=== PATIENT | male | born 1965 | race Caucasian/White ===

== ENCOUNTER → 2016-07-30 | Outpatient (CLI) | payer OTHER ==
[~2016-07-30] MED LIST: ALT5 PO; SIMV20TA2 PO
[2016-07-30 09:57] LABS: ESTIMATED AVERAGE GLUCOSE 163 mg/dl; HA1C FLAG Normal (Normal)
== END | disposition home or self-care (01) ==
LOC: C.LAB1850 07:37
PROVIDERS: ATTEND Internal Medicine
DX: E11.9 Type 2 diabetes mellitus without complications (principal)

== ENCOUNTER → 2016-10-30 | Outpatient (CLI) | payer OTHER ==
[2016-10-30 12:13] LABS: BASO % 0.4 %; BASO ABS # 0.03 K/uL (0-0.2); COMPLETE YES; EOS % 2.7 %; IG% 0.1 %; LYMPH % 33.3 %; LYMPH ABS # 2.67 K/uL (1.2-3.4); MEAN CELL VOLUME 87.5 fL (80-100); MEAN CORPUSCULAR HEMOGLOBIN 30.2 pg (25-34); MEAN CORPUSCULAR HGB CONC 34.5 g/dl (32-36); MEAN PLATELET VOLUME 10.5 fL (7.4-10.4); MONO % 5.7 %; NEUT % 57.8 %; PLATELET COUNT 205 K/uL (130-400); RED BLOOD COUNT 5.03 M/uL (4.7-6.1); WHITE BLOOD COUNT 8.03 K/uL (4.8-10.8)
[2016-10-30 12:25] LABS: ALT/SGPT 77 U/L (12-78); AST/SGOT 33 U/L (15-37); BLOOD UREA NITROGEN 22 mg/dl (7-18); BUN/CREATININE RATIO 18.1 (10-20); CALCIUM 9.4 mg/dl (8.5-10.1); CARBON DIOXIDE 24 mmol/L (21-32); CHLORIDE 106 mmol/L (98-107); CHOLESTEROL 143 mg/dl (0-200); GLUCOSE 120 mg/dl (70-99); POTASSIUM 4.4 mmol/L (3.5-5.1); SODIUM 138 mmol/L (136-145); TRIGLYCERIDES 205 mg/dl (0-150); VERY LOW DENSITY LIPOPROT CALC 41 mg/dl
[2016-10-30 12:28] LABS: CHOLESTEROL/HDL RATIO 3.6; HDL CHOLESTEROL 40 mg/dl; LDL CHOLESTEROL CALCULATED 62 mg/dl
[2016-10-30 12:45] LABS: ESTIMATED AVERAGE GLUCOSE 160 mg/dl; HA1C FLAG Normal (Normal)
== END | disposition home or self-care (01) ==
LOC: C.LAB1850 10:55
PROVIDERS: ATTEND Physician Assistant
DX: E78.5 Hyperlipidemia, unspecified (principal); D69.0 Allergic purpura; E11.9 Type 2 diabetes mellitus without complications

== ENCOUNTER → 2017-02-01 | Outpatient (CLI) | payer OTHER ==
[2017-02-02 05:44] LABS: ESTIMATED AVERAGE GLUCOSE 151 mg/dl; HA1C FLAG Normal (Normal)
== END | disposition home or self-care (01) ==
LOC: C.LAB1850 15:24
PROVIDERS: ATTEND Internal Medicine
DX: E11.9 Type 2 diabetes mellitus without complications (principal)

== ENCOUNTER → 2017-04-26 | Outpatient (CLI) | payer OTHER ==
[2017-04-26 09:38] LABS: BASO % 0.4 %; BASO ABS # 0.03 K/uL (0-0.2); COMPLETE YES; EOS % 2.8 %; HEMATOCRIT 43.1 % (42-52); IG% 0.1 %; LYMPH % 32.6 %; LYMPH ABS # 2.72 K/uL (1.2-3.4); MEAN CELL VOLUME 87.2 fL (80-100); MEAN CORPUSCULAR HEMOGLOBIN 30.6 pg (25-34); MEAN PLATELET VOLUME 10.1 fL (7.4-10.4); MONO % 6.6 %; NEUT % 57.5 %; PLATELET COUNT 234 K/uL (130-400); RED BLOOD COUNT 4.94 M/uL (4.7-6.1); WHITE BLOOD COUNT 8.34 K/uL (4.8-10.8)
[2017-04-26 09:52] LABS: ALT/SGPT 70 U/L (12-78); AST/SGOT 28 U/L (15-37); BLOOD UREA NITROGEN 17 mg/dl (7-18); BUN/CREATININE RATIO 16.7 (10-20); CALCIUM 9.1 mg/dl (8.5-10.1); CARBON DIOXIDE 27 mmol/L (21-32); CHLORIDE 106 mmol/L (98-107); CREATININE 1.02 mg/dl (0.60-1.40); GLUCOSE 132 mg/dl (70-99); POTASSIUM 4.4 mmol/L (3.5-5.1); SODIUM 136 mmol/L (136-145)
[2017-04-26 09:53] LABS: ESTIMATED AVERAGE GLUCOSE 166 mg/dl; HA1C FLAG Normal (Normal)
[2017-04-26 10:00] LABS: CHOLESTEROL 147 mg/dl (0-200); CHOLESTEROL/HDL RATIO 4.1; HDL CHOLESTEROL 36 mg/dl; LDL CHOLESTEROL CALCULATED 51 mg/dl; TRIGLYCERIDES 299 mg/dl (0-150); VERY LOW DENSITY LIPOPROT CALC 60 mg/dl
== END | disposition home or self-care (01) ==
LOC: C.LAB1850 07:40
PROVIDERS: ATTEND Physician Assistant
DX: E78.5 Hyperlipidemia, unspecified (principal); E11.9 Type 2 diabetes mellitus without complications

== ENCOUNTER → 2017-04-28 | Outpatient (CLI) | payer OTHER ==
--- NOTE | 2017-04-28 09:09 | DIAGNOSTIC IMAGING REPORT ---
CHEST 2 VIEWS ROUTINE HISTORY: Cough. COMPARISON: Chest 10/20/2012. FINDINGS: The lungs are clear. Cardiac silhouette is normal in size. No pleural effusions. No pneumothorax. IMPRESSION: No acute process. Electronically signed by: Wallace Kidd M.D. 04/28/2017 9:08 AM Dictated Date/Time: 04/28/2017 9:06 AM
== END | disposition home or self-care (01) ==
LOC: C.RAD1850 08:48
PROVIDERS: ATTEND Physician Assistant
DX: R05 Cough (principal)

== ENCOUNTER 2017-05-12 17:26 | Emergency (ER) | payer OTHER ==
[~2017-05-12] VITALS: Ht 182.9 cm; Wt 120.7 kg
[2017-05-12 17:29] VITALS: TEMP 36.6; Ht 182.9 cm; Wt 120.7 kg
[2017-05-12] MEDS ORDERED: SODIUM CHLORIDE 0.9% 1000ML 1,000 ML IV STA (18:39)
[2017-05-12] MEDS ORDERED: HYDROmorphone INJ 1 MG/ML SYR IV STA ×3 (18:39→22:11)
[2017-05-12] MEDS ORDERED: ONDANSETRON INJ 2 MG/ML 2 ML VIAL IV STA (18:39)
[2017-05-12 18:55] LABS: BASO % 0.2 %; BASO ABS # 0.03 K/uL (0-0.2); EOS ABS # 0.14 K/uL (0-0.5); HEMATOCRIT 42.8 % (42-52); HEMOGLOBIN 14.9 g/dL (14.0-18.0); IG# 0.07 K/uL (0.00-0.02); LYMPH % 21.9 %; LYMPH ABS # 3.14 K/uL (1.2-3.4); MEAN CELL VOLUME 87.3 fL (80-100); MEAN CORPUSCULAR HEMOGLOBIN 30.4 pg (25-34); MEAN CORPUSCULAR HGB CONC 34.8 g/dl (32-36); MEAN PLATELET VOLUME 10.1 fL (7.4-10.4); MONO % 5.1 %; MONO ABS # 0.73 K/uL (0.11-0.59); NEUT % 71.3 %; NEUT ABS # 10.24 K/uL (1.4-6.5); PLATELET COUNT 246 K/uL (130-400); RED CELL DISTRIBUTION WIDTH SD 44.7 fL (36.4-46.3); WHITE BLOOD COUNT 14.35 K/uL (4.8-10.8)
[2017-05-12 19:04] LABS: ALBUMIN 3.9 gm/dl (3.4-5.0); CALCIUM 9.7 mg/dl (8.5-10.1); CREATININE 1.46 mg/dl (0.60-1.40); POTASSIUM 4.7 mmol/L (3.5-5.1)
[2017-05-12 19:07] LABS: TOTAL PROTEIN 8.2 gm/dl (6.4-8.2)
--- NOTE | 2017-05-12 19:20 | DIAGNOSTIC IMAGING REPORT ---
ABD/PELVIS WITHOUT FOR STONE CLINICAL HISTORY: 52 years-old Male presenting with RIGHT FLANK PAIN. TECHNIQUE: Multidetector CT of the abdomen and pelvis was performed without the use of intravenous contrast. IV contrast: None. A dose lowering technique was used consistent with the principles of ALARA (as low as reasonably achievable). COMPARISON: 02/01/2008. CT DOSE (mGy.cm): The estimated cumulative dose is 1209.32 mGycm. FINDINGS: Lead Coater topogram: Unremarkable. Lung bases: Minimal basilar opacities, likely atelectasis. Coronary artery calcification. Normal heart size. No pericardial or pleural effusion. Liver: Normal morphology. Density consistent with hepatic steatosis. Punctate parenchymal calcification noted at the hepatic dome. Fatty sparing of the gallbladder fossa. Biliary: No gross biliary ductal dilatation allowing for noncontrast technique. Normal gallbladder. Pancreas: Normal noncontrast appearance. Spleen: Normal noncontrast appearance. Adrenal glands: Normal noncontrast appearance. Kidneys and ureters: Obstructing 8 mm calculus at the right ureteropelvic junction (series 3 image 223). Resulting mild right pelvocaliectasis. No additional right renal calculus. Enlargement of the right kidney relative to the left with mild right perinephric fat stranding. No left renal calculi. The remainder of the right ureter is normal as is the entirety of the left ureter. Bladder: Normal. No bladder calculi. Pelvic organs: Prostate and seminal vesicles normal. Bowel: Normal appendix. No bowel obstruction. Feces in the distal small bowel could suggest delayed transit. Peritoneal cavity: No free fluid or intraperitoneal gas. Lymph nodes: No gross lymphadenopathy allowing for noncontrast technique. Vasculature: Normal noncontrast appearance. Abdominal wall: Small fat-containing umbilical hernia. Musculoskeletal: Degenerative changes of the spine. Left pars defect of L5. IMPRESSION: 1. Obstructing 8 mm calculus at the right ureteropelvic junction with resultant mild right hydronephrosis. 2. No additional renal calculus. 3. Hepatic steatosis. Electronically signed by: Sly Gonzalez M.D. 05/12/2017 7:19 PM Dictated Date/Time: 05/12/2017 7:13 PM
[2017-05-12] MEDS ORDERED: KETOROLAC TROMETHAMINE 30 MG/ML VIAL IV STA (19:26)
[2017-05-12] MEDS ORDERED: TAMSULOSIN HCL 0.4 MG CAP PO ONE (19:30)
[2017-05-12] MEDS ORDERED: CZR50 PO (19:57)
[2017-05-12] MEDS ORDERED: GLC/500 PO (19:58)
[2017-05-12] MEDS ORDERED: OMEG10007 PO (19:59)
[2017-05-12] MEDS ORDERED: EFF75 PO (20:00)
[2017-05-12] MEDS ORDERED: OXYCODONE IR HOME PACK PO ONE (22:00)
[2017-05-12] MEDS ORDERED: OXYC-737 PO ×2 (22:07→22:13)
--- NOTE | 2017-05-12 22:13 | EMERGENCY ROOM VISIT NOTE ---
ED Visit Note First contact with patient: 18:29 CHIEF COMPLAINT: Abrupt onset of right flank pain this afternoon HISTORY OF PRESENT ILLNESS: Patient is a 52-year-old white male who presents emergency department for evaluation of right flank pain. He notes that he was sick for a cough for about a month, and while he was having coughing fits, he felt like he pulled a muscle in his right ribs. He had pain in the right mid back that wrapped around the right side under his ribs. He was seen by his PCP and had a chest x-ray. He was placed on an unknown antibiotic which has finished, and cough and rib pain have resolved. 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 He now notes pain in the right mid back that wraps around to the right upper quadrant and radiates down into his right groin. He reports associated nausea, dry heaves and cold sweats. He tried taking Tylenol without relief. He states the pain is fairly constant, but does slightly increase and decrease in intensity. At the present time he rates his discomfort and 8/10. He denies any dysuria, frequency, urgency or hematuria. No diarrhea, melena or hematochezia. He denies a prior history of kidney stones and has never had pains to this previously. REVIEW OF SYSTEMS: Review of systems as per HPI. All other systems reviewed were negative. 10 systems reviewed. PMH: Electronic medical records are reviewed and summarized as above/below. See Problem List. SOCIAL HISTORY: Patient lives at home with his significant other. He does not smoke. PHYSICAL EXAM: Vital Signs: Reviewed Nurse's notes. CONSTITUTIONAL: Patient is a diaphoretic, uncomfortable appearing 52-year-old white male who is awake and alert and in moderate distress due to his stated complaint. EYES: Pupils equal, round, reactive to light and accommodation. EOMs intact without nystagmus. Sclera are anicteric. ENT: Tympanic membranes intact, with normal landmarks. External canals are clear. Oral and nasopharynx are clear. Mucous membranes are moist, no lesions , tongue and gums appear normal. CARDIOVASCULAR: Regular rate and rhythm. Peripheral pulses easily palpable. RESPIRATORY: Breath sounds equal and clear to auscultation without wheezes, rales, or rhonchi heard. Full and equal chest expansion without accessory muscle use or retractions. ABDOMEN: Bowel sounds are present. Abdomen is soft, obese, nondistended. Abdomen is nontender to palpation throughout. There is no localized pain in the right lower quadrant. No pain in the right upper quadrant, and negative Bustos's sign. No masses or hernias are appreciated. INTEGUMENTARY: No lesions or rash, normal skin turgor. LYMPH: No lymphadenopathy. EMERGENCY DEPARTMENT COURSE: Patient was seen and evaluated as above. His old records are reviewed. He presents emergency department for evaluation of colicky right flank pain. IV lock was initiated. He was hydrated with normal saline solution and medicated with Dilaudid 1 mg IV 2 and Zofran 4 mg IV. CBC with differential, CMP, lipase and urinalysis were collected. CT scan of the abdomen and pelvis without contrast was ordered. Laboratory studies noted a white count of 14,300, H&H is normal. Electrolytes are within normal limits. BUN and creatinine 30 and 1.46 respectively. Liver functions and lipase are not elevated. Urinalysis notes 2+ occult blood only, no nitrates, leukocyte esterase or WBCs. CT of the abdomen and pelvis for stone noted an obstructing 8 mm calculus at the right UPJ. The patient was reassessed frequently. All laboratory and diagnostic imaging studies were reviewed with attending physician. I did also review the patient' s presentation with urology telephonic nurse case manager, Dr. Adler. He felt that if the patient' s pain was controlled, the patient could be discharged to home with plans for follow-up in the office tomorrow, with consideration for surgical intervention. This was discussed with the patient and he was in agreement. He did receive an additional Dilaudid 1 mg IV prior to discharge. He was given an oxycodone home pack and prescribed oxycodone to use as needed for pain. He was advised to avoid aspirin and NSAIDs for possible surgical intervention. He was educated on the worrisome signs or symptoms for which she should return to the emergency department, including but not limited to fevers, vomiting or uncontrolled pain. The patient was discharged to home with his significant other driving. He rated his discomfort a 6/10 at discharge. Medication reconciliation: I attest that I have personally reviewed the patient' s current medication list. Blood pressure screening: Patient was found to have a slightly elevated blood pressure due to circumstances. I do not believe that the patient requires hypertension monitoring. Patient was reviewed in the [facility] Prescription Drug Monitoring Program, and there was no record noted for this patient. Differential diagnoses considered included UTI, pyelonephritis, renal colic, appendicitis, hernia, bowel obstruction, biliary colic, mass or malignancy, musculoskeletal pain, shingles, among others. ABD/PELVIS WITHOUT FOR STONE CLINICAL HISTORY: 52 years-old Male presenting with RIGHT FLANK PAIN. TECHNIQUE: Multidetector CT of the abdomen and pelvis was performed without the use of intravenous contrast. IV contrast: None. A dose lowering technique was used consistent with the principles of ALARA (as low as reasonably achievable). COMPARISON: 02/01/2008. CT DOSE (mGy.cm): The estimated cumulative dose is 1209.32 mGycm. FINDINGS: [facility] [employer]inator topogram: Unremarkable. Lung bases: Minimal basilar opacities, likely atelectasis. Coronary artery calcification. Normal heart size. No pericardial or pleural effusion. Liver: Normal morphology. Density consistent with hepatic steatosis. Punctate parenchymal calcification noted at the hepatic dome. Fatty sparing of the gallbladder fossa. Biliary: No gross biliary ductal dilatation allowing for noncontrast technique. Normal gallbladder. Pancreas: Normal noncontrast appearance. Spleen: Normal noncontrast appearance. Adrenal glands: Normal noncontrast appearance. Kidneys and ureters: Obstructing 8 mm calculus at the right ureteropelvic junction (series 3 image 223). Resulting mild right pelvocaliectasis. No additional right renal calculus. Enlargement of the right kidney relative to the left with mild right perinephric fat stranding. No left renal calculi. The remainder of the right ureter is normal as is the entirety of the left ureter. Bladder: Normal. No bladder calculi. Pelvic organs: Prostate and seminal vesicles normal. Bowel: Normal appendix. No bowel obstruction. Feces in the distal small bowel could suggest delayed transit. Peritoneal cavity: No free fluid or intraperitoneal gas. Lymph nodes: No gross lymphadenopathy allowing for noncontrast technique. Vasculature: Normal noncontrast appearance. Abdominal wall: Small fat-containing umbilical hernia. Musculoskeletal: Degenerative changes of the spine. Left pars defect of L5. IMPRESSION: 1. Obstructing 8 mm calculus at the right ureteropelvic junction with resultant mild right hydronephrosis. 2. No additional renal calculus. 3. Hepatic steatosis. Problem List Medical Problems: (1) Anxiety State Nos Status: Chronic (2) Diab Heather Wo Compl, Type Ii Or Unspec Type, Not Uncntrld Status: Chronic (3) HSP (Henoch Schonlein purpura) Status: Resolved (4) Hyperlipidemia, Unspecified Status: Chronic (5) Hypertension Nos Status: Chronic (6) Obesity, Nos Status: Chronic Surgical Problems: (1) History of bilateral inguinal hernia repair Status: Resolved Current/Historical Medications Scheduled Fish Oil (Dickinson-3), 1,000 MG PO DAILY Losartan Potassium (Losartan Potassium), 100 MG PO DAILY Metformin Hcl (Glucophage), 1,000 MG PO BID Simvastatin (Zocor), 20 MG PO QPM Venlafaxine Hcl (Effexor), 75 MG PO DAILY Scheduled PRN Oxycodone Immediate Rel Tab (Roxicodone Ir), 1-2 TAB PO Q4H PRN for Severe Pain Allergies Coded Allergies: No Known Allergies (Verified , 07/16/11) Vital Signs Date Time Temp Pulse Resp B/P (MAP) Pulse Ox O2 Delivery O2 Flow Rate FiO2 05/12/17 21:50 91 16 150/87 93 Room Air 05/12/17 20:21 95 16 151/91 93 Room Air 05/12/17 18:47 81 18 162/101 96 Room Air 05/12/17 17:29 36.6 81 19 154/94 97 Room Air Laboratory Results 05/12/17 18:37 Red Blood Count 4.90, Mean Corpuscular Volume 87.3, Mean Corpuscular Hemoglobin 30.4, Mean Corpuscular Hemoglobin Concent 34.8, Mean Platelet Volume 10.1, Neutrophils (%) (Auto) 71.3, Lymphocytes (%) (Auto) 21.9, Monocytes (%) (Auto) 5.1, Eosinophils (%) (Auto) 1.0, Basophils (%) (Auto) 0.2, Neutrophils # (Auto) 10.24, Lymphocytes # (Auto) 3.14, Monocytes # (Auto) 0.73, Eosinophils # (Auto) 0.14, Basophils # (Auto) 0.03 05/12/17 18:37 Test 05/12/17 18:37 05/12/17 20:45 White Blood Count 14.35 K/uL (4.8-10.8) Red Blood Count 4.90 M/uL (4.7-6.1) Hemoglobin 14.9 g/dL (14.0-18.0) Hematocrit 42.8 % (42-52) Mean Corpuscular Volume 87.3 fL (80-100) Mean Corpuscular Hemoglobin 30.4 pg (25-34) Mean Corpuscular Hemoglobin Concent 34.8 g/dl (32-36) Platelet Count 246 K/uL (130-400) Mean Platelet Volume 10.1 fL (7.4-10.4) Neutrophils (%) (Auto) 71.3 % Lymphocytes (%) (Auto) 21.9 % Monocytes (%) (Auto) 5.1 % Eosinophils (%) (Auto) 1.0 % Basophils (%) (Auto) 0.2 % Neutrophils # (Auto) 10.24 K/uL (1.4-6.5) Lymphocytes # (Auto) 3.14 K/uL (1.2-3.4) Monocytes # (Auto) 0.73 K/uL (0.11-0.59) Eosinophils # (Auto) 0.14 K/uL (0-0.5) Basophils # (Auto) 0.03 K/uL (0-0.2) RDW Standard Deviation 44.7 fL (36.4-46.3) RDW Coefficient of Variation 14.0 % (11.5-14.5) Immature Granulocyte % (Auto) 0.5 % Immature Granulocyte # (Auto) 0.07 K/uL (0.00-0.02) Anion Gap 8.0 mmol/L (3-11) Est Creatinine Clear Calc Drug Dose 80.3 ml/min Estimated GFR () 63.6 Estimated GFR (Non- 54.9 BUN/Creatinine Ratio 20.6 (10-20) Calcium Level 9.7 mg/dl (8.5-10.1) Total Bilirubin 0.4 mg/dl (0.2-1) Aspartate Amino Transf (AST/SGOT) 31 U/L (15-37) Alanine Aminotransferase (ALT/SGPT) 74 U/L (12-78) Alkaline Phosphatase 69 U/L (45-117) Total Protein 8.2 gm/dl (6.4-8.2) Albumin 3.9 gm/dl (3.4-5.0) Globulin 4.3 gm/dl (2.5-4.0) Albumin/Globulin Ratio 0.9 (0.9-2) Lipase 314 U/L (73-393) Urine Color YELLOW Urine Appearance CLEAR (CLEAR) Urine pH 5.0 (4.5-7.5) Urine Specific [place] 1.027 (1.000-1.030) Urine Protein 2+ (NEG) Urine Glucose (UA) NEG (NEG) Urine Ketones NEG (NEG) Urine Occult Blood 2+ (NEG) Urine Nitrite NEG (NEG) Urine Bilirubin NEG (NEG) Urine Urobilinogen NEG (NEG) Urine Leukocyte Esterase NEG (NEG) Urine WBC (Auto) 1-5 /hpf (0-5) Urine RBC (Auto) 0-4 /hpf (0-4) Urine Hyaline Casts (Auto) 1-5 /lpf (0-5) Urine Epithelial Cells (Auto) 0-5 /lpf (0-5) Urine Bacteria (Auto) NEG (NEG) Medications Administered Medications (Trade) Dose Ordered Sig/Joseline Route Start Time Stop Time Status Last Admin Dose Admin Sodium Chloride 1,000 ml @ 999 mls/hr Q1H1M STAT IV 05/12/17 18:39 05/12/17 19:39 DC 05/12/17 18:56 999 MLS/HR Ondansetron HCl (Zofran Inj) 4 mg NOW STAT IV 05/12/17 18:39 05/12/17 18:41 DC 05/12/17 18:56 4 MG Hydromorphone HCl (Dilaudid Inj) 1 mg NOW STAT IV 05/12/17 18:39 05/12/17 18:41 DC 05/12/17 18:55 1 MG Ketorolac Tromethamine (Toradol Inj) 30 mg NOW STAT IV 05/12/17 19:26 05/12/17 19:28 DC 05/12/17 19:36 30 MG Hydromorphone HCl (Dilaudid Inj) 1 mg NOW STAT IV 05/12/17 19:26 05/12/17 19:28 DC 05/12/17 19:35 1 MG Tamsulosin HCl (Flomax Cap) 0.4 mg NOW ONCE PO 05/12/17 19:30 05/12/17 19:31 DC 05/12/17 19:36 0.4 MG Oxycodone HCl (Roxicodone Immediate Rel 5MG Home Pack) 1 homepack UD ONCE PO 05/12/17 22:00 05/12/17 22:01 DC 05/12/17 22:22 1 HOMEPACK Hydromorphone HCl (Dilaudid Inj) 1 mg NOW STAT IV 05/12/17 22:11 05/12/17 22:12 DC 05/12/17 22:22 1 MG Departure Information Impression Primary Impression: Right ureteral calculus Prescriptions Oxycodone Immediate Rel Tab (ROXICODONE IR) 5 Mg Tab 1-2 TAB PO Q4H Y for Severe Pain, #30 TAB Prov: Em Arias PA 05/12/17 Referrals Anibal Harris M.D. (PCP) Kamran Adler M.D. Patient Instructions My [facility] Additional Instructions DO NOT drive, drink alcohol, operate machinery, or perform dangerous activities today. You were given medications in the ER that can affect your ability to safely function or operate a vehicle. Oxycodone Immediate Release (OxyIR) 5mg: Take 1-2 pills every four hours for pain. Avoid alcohol, operating machinery or dangerous equipment, working on ladders or roofs, DRIVING, or situations where being under the influence may be dangerous. It is recommended to use an [id number] stool softener such as Colace, 100mg twice daily while taking this medication to avoid constipation. Zofran(odansetron) tablets 4mg: Take one and allow it to dissolve in your mouth every four to six hours as needed for nausea or vomiting. Acetaminophen(Tylenol) may be used for fever or pain. Use 1000mg every six hours as needed. Avoid using more than 4000mg in a 24 hour period. This medication can be taken if you need to drive, work, or perform activities which may be dangerous when taking narcotic pain medication. Strain your urine and collect all the stones or debris for the urologists. Rest and avoid strenuous activity until your stone passes and symptoms resolve. Drink plenty of fluids. Continue current medications. Return to the ER for worsening abdominal or back pain, vomiting, fevers, passing out, or as needed. Call [facility] tomorrow morning at 9 AM. Tell them you were seen in the emergency department and your case was reviewed with Dr. Adler.
--- NOTE | 2017-05-12 22:20 | DIAGNOSTIC IMAGING REPORT ---
KUB CLINICAL HISTORY: 52 years-old Male presenting with EVAL STONE. TECHNIQUE: Single supine view of the abdomen was obtained. COMPARISON: CT from 05/12/2017. FINDINGS: Nonobstructive bowel gas pattern. Moderate stool burden throughout the colon. No gross pneumoperitoneum. Allowing for bowel gas and stool, nonvisualization of the obstructing calculus at the proximal right ureter. However, there is an additional calculus evident in the right hemipelvis that does not correlate clearly with one of the pelvic phleboliths on CT. This may represent progression of the right ureteral calculus. Osseous structures normal. Lung bases clear. IMPRESSION: 1. Findings suggestive of significant progression of the right ureteral calculus, which may be located in the distal right ureter. Overall the examination is limited given the presence of extensive bowel gas and stool. Electronically signed by: Sly Gonzalez M.D. 05/12/2017 10:19 PM Dictated Date/Time: 05/12/2017 10:16 PM
[2017-05-12 22:23] VITALS: BP 144/80; PULSE 75; O2SAT 98
[2017-05-13] MEDS ORDERED: TAMS0.4C38 PO (13:31)
[2017-05-13] MEDS ORDERED: CPR500 PO (13:31)
[2017-05-13] MEDS ORDERED: OXYC-90 PO (13:47)
== END 2017-05-12 22:24 | disposition home or self-care (01) ==
LOC: C.EDB 17:28 → C.EDA 22:24
DX: N20.1 Calculus of ureter (principal); K76.0 Fatty (change of) liver, not elsewhere classified; E78.5 Hyperlipidemia, unspecified; E11.9 Type 2 diabetes mellitus without complications; I10 Essential (primary) hypertension; Z79.899 Other long term (current) drug therapy

== ENCOUNTER → 2017-05-13 | Outpatient (CLI) | payer OTHER ==
[~2017-05-13] MED LIST changes: +CPR500 PO; +CZR50 PO; +EFF75 PO; +GLC/500 PO; +OMEG10007 PO; +OXYC-737 PO; +OXYC-90 PO; +TAMS0.4C38 PO
== END | disposition home or self-care (01) ==
LOC: C.LAB 11:16
PROVIDERS: ATTEND Urology
DX: N20.1 Calculus of ureter (principal)

== ENCOUNTER 2017-05-14 13:18 | Inpatient (IN) | payer OTHER ==
[~2017-05-14] VITALS: Ht 182.9 cm; Wt 135.9 kg
[~2017-05-14 13:18] MED LIST changes: -ACETAMINOPHEN 325 MG TAB PO PRN; -ATROPINE SULFATE 0.1 MG/ML 5ML SYR IV PRN; -CIPROFLOXACIN 400MG / D5W IV SCH; -DEXAMETHASONE SOD INJ 4 MG/ML VIAL ONE; -EpHEDrine SULFATE INJ 50 MG/ML AMP IV PRN; -FENTANYL CITRATE INJ 50 MCG/1 ML 2 ML VIAL ONE; -FUROSEMIDE INJ 10 MG/ML 2 ML VIAL ONE; -LACTATED RINGER'S 1000ML 1,000 ML IV SCH; -LIDOCAINE HCL 2% 2 ML VIAL (20MG/ML) ONE; -MIDAZOLAM HCL 1 MG/ML 2ML VIAL ONE; -NURSING VERBAL MED ORDER ONE; -ONDANSETRON INJ 2 MG/ML 2 ML VIAL IV PRN; -ONDANSETRON INJ 2 MG/ML 2 ML VIAL ONE; -OPTIRAY 300 IV ONE; -OXYCODONE/ACETAMINOPHEN 5-325 TAB PO PRN; -PROPOFOL IV EMULSION 10 MG/ML 20 ML VIAL IV ONE; -SODIUM CHLORIDE 0.9% 1000ML 1,000 ML IV SCH
[2017-05-14] MEDS ORDERED: SODIUM CHLORIDE 0.9% 1000ML 1,000 ML IV STA (13:26)
[2017-05-14] MEDS ORDERED: MoRPHine SULFATE 10 MG/ML CARP/VIAL IV STA (13:26)
[2017-05-14] MEDS ORDERED: KETOROLAC TROMETHAMINE 30 MG/ML VIAL IV STA (13:26)
[2017-05-14] MEDS ORDERED: ONDANSETRON INJ 2 MG/ML 2 ML VIAL IV STA (13:26)
--- NOTE | 2017-05-14 13:38 | EMERGENCY ROOM VISIT NOTE ---
History Report prepared by Lb: Naida Hall Under the Supervision of: Dr. Collin Nguyen M.D. First contact with patient: 13:21 Chief Complaint: PAIN (GENERALIZED) Stated Complaint: PAIN History of Present Illness The patient is a 52 year old male who presents to the Emergency Room with complaints of persistent right flank pain that began after his lithotripsy today. The patient states that he had an 8ml stone on his right side. He notes he had diarrhea last night. The patient denies having any chest pain, shortness of breath, or diarrhea. He notes he is in remission for HSP. Source of History: patient Onset: 2 days ago Position: other (global) Quality: other (generalized pain) Timing: other (persistent) Associated Symptoms: + melena, No chest pain, No SOB, No diarrhea Review of Systems See HPI for pertinent positives and negatives. A total of ten systems were reviewed and were otherwise negative. Past Medical & Surgical Medical Problems: (1) Anxiety State Nos (2) Diab Heather Wo Compl, Type Ii Or Unspec Type, Not Uncntrld (3) HSP (Henoch Schonlein purpura) (4) HSP (Henoch Schonlein purpura) (5) Hyperlipidemia, Unspecified (6) Hypertension Nos (7) Obesity, Nos (8) Obstructive uropathy (9) Renal colic Surgical Problems: (1) History of bilateral inguinal hernia repair Family History Patient reports no known family medical history. Social History Smoking Status: Never Smoker Smokeless Tobacco Use: No Alcohol Use: none Drug Use: none Current/Historical Medications Scheduled Ciprofloxacin (Ciprofloxacin HCl), 500 MG PO Q12H Fish Oil ([place]-3), 1,000 MG PO QAM Losartan Potassium (Losartan Potassium), 100 MG PO QAM Metformin Hcl (Glucophage), 1,000 MG PO BID Simvastatin (Zocor), 20 MG PO QPM Tamsulosin Hcl (Flomax), 0.4 MG PO QPM Venlafaxine Hcl (Effexor), 75 MG PO QAM Scheduled PRN Oxycodone Ir (Roxicodone Ir), 1-2 TAB PO Q4H PRN for Severe Pain Allergies Coded Allergies: No Known Allergies (Verified , 05/14/17) Physical Exam Vital Signs Date Time Temp Pulse Resp B/P (MAP) Pulse Ox O2 Delivery O2 Flow Rate FiO2 05/14/17 16:11 82 16 131/84 94 05/14/17 14:27 138/82 05/14/17 14:24 93 16 94 Room Air 05/14/17 13:19 36.9 90 16 96 Room Air Physical Exam GENERAL: Awake, alert, uncomfortable appearing, in mild distress HENT: Dry mucous membranes. Normocephalic, atraumatic. Oropharynx unremarkable. EYES: Normal conjunctiva. Sclera non-icteric. NECK: Supple. No nuchal rigidity. FROM. No JVD. RESPIRATORY: Clear to auscultation. CARDIAC: Regular rate, normal rhythm. Extremities warm and well perfused. Pulses equal. ABDOMEN: Soft, non-distended. No tenderness to palpation. No rebound or guarding. No masses. Mild tenderness to right CVA and flank. RECTAL: Deferred. MUSCULOSKELETAL: Chest examination reveals no tenderness. No joint edema. LOWER EXTREMITIES: Calves are equal size bilaterally and non-tender. No edema. No discoloration. NEURO: Normal sensorium. No sensory or motor deficits noted. SKIN: No rash or jaundice noted. Medical Decision & Procedures ER Provider Diagnostic Interpretation: Radiology results as stated below per my review and radiologist interpretation: ABD/PELVIS NO IV OR ORAL CONT CLINICAL HISTORY: 52 years-old Male presenting with R flank pain s/p lithotripsy. TECHNIQUE: Multidetector CT of the abdomen and pelvis was performed without the use of intravenous contrast. IV contrast: None. A dose lowering technique was used consistent with the principles of ALARA (as low as reasonably achievable). COMPARISON: 05/12/2017. CT DOSE (mGy.cm): The estimated cumulative dose is 1834.00 mGy.cm. FINDINGS: Banking Representative topogram: Unremarkable. Lung bases: Increased bibasilar dependent consolidation and volume loss consistent with atelectasis. Coronary artery calcification. Normal heart size. No pericardial or pleural effusion. Liver: Normal morphology. Density consistent with hepatic steatosis. Parenchymal calcification noted. Biliary: No gross biliary ductal dilatation allowing for noncontrast technique. Normal gallbladder. Pancreas: Mild parenchymal atrophy. Spleen: Normal noncontrast appearance. Adrenal glands: Normal noncontrast appearance. Kidneys and ureters: Opacification of the right renal collecting system likely from recent contrast administration. The obstructing 8 mm calculus remains at the right ureteropelvic junction. Moderate right hydronephrosis. Enlargement of the right kidney with perinephric fat stranding as on prior exam. No left renal calculi or left hydronephrosis. Remainder of the right ureter and entirety of the left ureter normal. Bladder: Contrast opacifies the urinary bladder. Pelvic organs: Prostate and seminal vesicles normal. Bowel: Normal appendix. No bowel obstruction. Peritoneal cavity: No free fluid or intraperitoneal gas. Lymph nodes: No gross lymphadenopathy allowing for noncontrast technique. Vasculature: Normal noncontrast appearance. Abdominal wall: Small fat-containing umbilical hernia. Musculoskeletal: Degenerative changes of the spine. Left pars defect of L5. 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 IMPRESSION: 1. Unchanged position of the obstructing 8 mm calculus at the right ureteropelvic junction with resultant mild to moderate right hydronephrosis. 2. Hepatic steatosis. Electronically signed by: Sly Gonzalez M.D. 05/14/2017 3:39 PM Dictated Date/Time: 05/14/2017 3:34 PM Laboratory Results 05/14/17 13:57 Red Blood Count 4.30, Mean Corpuscular Volume 88.8, Mean Corpuscular Hemoglobin 30.5, Mean Corpuscular Hemoglobin Concent 34.3, Mean Platelet Volume 9.4, Neutrophils (%) (Auto) 81.5, Lymphocytes (%) (Auto) 11.0, Monocytes (%) (Auto) 6.7, Eosinophils (%) (Auto) 0.5, Basophils (%) (Auto) 0.1, Neutrophils # (Auto) 8.23, Lymphocytes # (Auto) 1.11, Monocytes # (Auto) 0.68, Eosinophils # (Auto) 0.05, Basophils # (Auto) 0.01 05/14/17 13:57 Test 05/14/17 13:25 05/14/17 13:57 05/14/17 16:50 Urine Color YELLOW Urine Appearance CLEAR (CLEAR) Urine pH 5.0 (4.5-7.5) Urine Specific [place] 1.018 (1.000-1.030) Urine Protein NEG (NEG) Urine Glucose (UA) NEG (NEG) Urine Ketones NEG (NEG) Urine Occult Blood 1+ (NEG) Urine Nitrite NEG (NEG) Urine Bilirubin NEG (NEG) Urine Urobilinogen NEG (NEG) Urine Leukocyte Esterase NEG (NEG) Urine WBC (Auto) 1-5 /hpf (0-5) Urine RBC (Auto) 0-4 /hpf (0-4) Urine Hyaline Casts (Auto) 1-5 /lpf (0-5) Urine Epithelial Cells (Auto) 0-5 /lpf (0-5) Urine Bacteria (Auto) NEG (NEG) White Blood Count 10.10 K/uL (4.8-10.8) Red Blood Count 4.30 M/uL (4.7-6.1) Hemoglobin 13.1 g/dL (14.0-18.0) Hematocrit 38.2 % (42-52) Mean Corpuscular Volume 88.8 fL (80-100) Mean Corpuscular Hemoglobin 30.5 pg (25-34) Mean Corpuscular Hemoglobin Concent 34.3 g/dl (32-36) Platelet Count 168 K/uL (130-400) Mean Platelet Volume 9.4 fL (7.4-10.4) Neutrophils (%) (Auto) 81.5 % Lymphocytes (%) (Auto) 11.0 % Monocytes (%) (Auto) 6.7 % Eosinophils (%) (Auto) 0.5 % Basophils (%) (Auto) 0.1 % Neutrophils # (Auto) 8.23 K/uL (1.4-6.5) Lymphocytes # (Auto) 1.11 K/uL (1.2-3.4) Monocytes # (Auto) 0.68 K/uL (0.11-0.59) Eosinophils # (Auto) 0.05 K/uL (0-0.5) Basophils # (Auto) 0.01 K/uL (0-0.2) RDW Standard Deviation 47.0 fL (36.4-46.3) RDW Coefficient of Variation 14.5 % (11.5-14.5) Immature Granulocyte % (Auto) 0.2 % Immature Granulocyte # (Auto) 0.02 K/uL (0.00-0.02) Prothrombin Time 10.7 SECONDS (9.0-12.0) Prothromb Time International Ratio 1.0 (0.9-1.1) Activated Partial Thromboplast Time 25.0 SECONDS (21.0-31.0) Partial Thromboplastin Ratio 1.0 Anion Gap 5.0 mmol/L (3-11) Est Creatinine Clear Calc Drug Dose 67.1 ml/min Estimated GFR () 47.5 Estimated GFR (Non- 41.0 BUN/Creatinine Ratio 16.0 (10-20) Lactic Acid Level 2.1 mmol/L (0.4-2.0) Calcium Level 8.6 mg/dl (8.5-10.1) Total Bilirubin 0.5 mg/dl (0.2-1) Direct Bilirubin 0.1 mg/dl (0-0.2) Aspartate Amino Transf (AST/SGOT) 20 U/L (15-37) Alanine Aminotransferase (ALT/SGPT) 52 U/L (12-78) Alkaline Phosphatase 55 U/L (45-117) Total Protein 7.2 gm/dl (6.4-8.2) Albumin 3.1 gm/dl (3.4-5.0) Lipase 335 U/L (73-393) Bedside Lactic Acid Venous 1.90 mmol/L (0.90-1.70) Laboratory results reviewed by me Medications Administered Medications (Trade) Dose Ordered Sig/Joseline Route Start Time Stop Time Status Last Admin Dose Admin Sodium Chloride 1,000 ml @ 999 mls/hr Q1H1M STAT IV 05/14/17 13:26 05/14/17 14:26 DC 05/14/17 13:35 999 MLS/HR Ondansetron HCl (Zofran Inj) 4 mg NOW STAT IV 05/14/17 13:26 05/14/17 13:28 DC 05/14/17 13:35 4 MG Morphine Sulfate (MoRPHine SULFATE INJ) 8 mg NOW STAT IV 05/14/17 13:26 05/14/17 13:28 DC 05/14/17 13:35 8 MG Ketorolac Tromethamine (Toradol Inj) 15 mg NOW STAT IV 05/14/17 13:26 05/14/17 13:28 DC 05/14/17 13:35 15 MG Heparin Sodium (Porcine) (Heparin Sq 5000 Unit/0.5ml) 5,000 unit ONE ONCE SQ 05/14/17 17:15 05/14/17 19:54 DC 05/14/17 20:45 5,000 UNIT ED Course 1330: The patient was evaluated in room B6. A complete history and physical exam was performed. 1622: I reevaluated the patient, who is resting. Ordered repeat lactase. 1644: I discussed the patient with JUAN R Jaquez - He is willing to admit the patient into the hospital and do a STENT tomorrow, noting the lithotripsy was challenging and were unsure they were successful seeing the stone. Medical Decision I reviewed the patient's past medical history, medications, and the nursing notes as described above. The patient's presentation and history were concerning for obstructive ureteral stone, ruptured ureter, UTI, pyelonephritis, and colitis. The patient is a 52-year-old gentleman with a past medical history of recent diagnosed obstructing 8 mm right kidney stone who presents emergency department from surgical center after having significant pain after attempted lithotripsy per hpi. On arrival, the patient is in mild distress 2/2 pain otherwise is afebrile with stable vital signs. Patient has mild right CVA and flank tenderness. No peritoneal signs. Labs mildly elevated lactate 2.2. WBC within normal limits. Cr slightly increased from recent 1.8. UA negative for infection. CT scan demonstrates unchanged 8mm obstructing stone with associated hydronephrosis in the right ureteral pelvic junction. Patient feeling improved after IV fluids, morphine, and Toradol. I discussed the case with Dr. Adler, the patient's urologist, who recommends admission for pain control and he will perform stenting in the morning. Case was discussed with Dr. Ozuna, JUAN R hospitalist, who will admit the patient for further management. Medication Reconcilliation Current Medication List: was personally reviewed by me Consults Time Called: 1644 Consulting Physician: JUAN R Long Returned Call: 1644 I discussed the patient with JUAN R Jaquez - He is willing to admit the patient into the hospital and do a STENT tomorrow, noting the lithotripsy was challenging and were unsure they were successful seeing the stone. Impression Primary Impression: Ureterolithiasis Additional Impression: Hydronephrosis Scribe Attestation The scribe's documentation has been prepared under my direction and personally reviewed by me in its entirety. I confirm that the note above accurately reflects all work, treatment, procedures, and medical decision making performed by me. Departure Information Referrals Anibal Harris M.D. (PCP) Forms HOME CARE DOCUMENTATION FORM, IMPORTANT VISIT INFORMATION, WORK / SCHOOL INSTRUCTIONS Patient Instructions My [facility] Problem Qualifiers
[2017-05-14 14:14] LABS: BASO % 0.1 %; BASO ABS # 0.01 K/uL (0-0.2); EOS % 0.5 %; EOS ABS # 0.05 K/uL (0-0.5); HEMATOCRIT 38.2 % (42-52); HEMOGLOBIN 13.1 g/dL (14.0-18.0); IG# 0.02 K/uL (0.00-0.02); LYMPH ABS # 1.11 K/uL (1.2-3.4); MEAN CELL VOLUME 88.8 fL (80-100); MEAN CORPUSCULAR HEMOGLOBIN 30.5 pg (25-34); MEAN CORPUSCULAR HGB CONC 34.3 g/dl (32-36); MEAN PLATELET VOLUME 9.4 fL (7.4-10.4); MONO % 6.7 %; MONO ABS # 0.68 K/uL (0.11-0.59); NEUT % 81.5 %; NEUT ABS # 8.23 K/uL (1.4-6.5); PLATELET COUNT 168 K/uL (130-400); RED CELL DISTRIBUTION WIDTH CV 14.5 % (11.5-14.5)
[2017-05-14 14:32] LABS: ALBUMIN 3.1 gm/dl (3.4-5.0); CALCIUM 8.6 mg/dl (8.5-10.1); CREATININE 1.86 mg/dl (0.60-1.40); POTASSIUM 4.6 mmol/L (3.5-5.1)
[2017-05-14 14:35] LABS: TOTAL PROTEIN 7.2 gm/dl (6.4-8.2)
--- NOTE | 2017-05-14 15:40 | DIAGNOSTIC IMAGING REPORT ---
ABD/PELVIS NO IV OR ORAL CONT CLINICAL HISTORY: 52 years-old Male presenting with R flank pain s/p lithotripsy. TECHNIQUE: Multidetector CT of the abdomen and pelvis was performed without the use of intravenous contrast. IV contrast: None. A dose lowering technique was used consistent with the principles of ALARA (as low as reasonably achievable). COMPARISON: 05/12/2017. CT DOSE (mGy.cm): The estimated cumulative dose is 1834.00 mGy.cm. FINDINGS: [employer] topogram: Unremarkable. Lung bases: Increased bibasilar dependent consolidation and volume loss consistent with atelectasis. Coronary artery calcification. Normal heart size. No pericardial or pleural effusion. Liver: Normal morphology. Density consistent with hepatic steatosis. Parenchymal calcification noted. Biliary: No gross biliary ductal dilatation allowing for noncontrast technique. Normal gallbladder. Pancreas: Mild parenchymal atrophy. Spleen: Normal noncontrast appearance. Adrenal glands: Normal noncontrast appearance. Kidneys and ureters: Opacification of the right renal collecting system likely from recent contrast administration. The obstructing 8 mm calculus remains at the right ureteropelvic junction. Moderate right hydronephrosis. Enlargement of the right kidney with perinephric fat stranding as on prior exam. No left renal calculi or left hydronephrosis. Remainder of the right ureter and entirety of the left ureter normal. Bladder: Contrast opacifies the urinary bladder. Pelvic organs: Prostate and seminal vesicles normal. Bowel: Normal appendix. No bowel obstruction. Peritoneal cavity: No free fluid or intraperitoneal gas. Lymph nodes: No gross lymphadenopathy allowing for noncontrast technique. Vasculature: Normal noncontrast appearance. Abdominal wall: Small fat-containing umbilical hernia. Musculoskeletal: Degenerative changes of the spine. Left pars defect of L5. 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 IMPRESSION: 1. Unchanged position of the obstructing 8 mm calculus at the right ureteropelvic junction with resultant mild to moderate right hydronephrosis. 2. Hepatic steatosis. Electronically signed by: Sly Gonzalez M.D. 05/14/2017 3:39 PM Dictated Date/Time: 05/14/2017 3:34 PM
[2017-05-14] MEDS ORDERED: OXYCODONE HCL IR 5 MG TAB (IMMEDIATE RELEASE) PO PRN (17:15)
[2017-05-14] MEDS ORDERED: MoRPHine SULFATE 2 MG/ML CARP IV PRN (17:15)
[2017-05-14] MEDS ORDERED: GLUCOSE 10 TABS/TUBE PO PRN (17:15)
[2017-05-14] MEDS ORDERED: HEPARIN SOD 5000 UNIT/0.5 ML CARP SQ ONE (17:15)
[2017-05-14] MEDS ORDERED: GLUCOSE 40% GEL 15 GM TUBE PO PRN (17:15)
[2017-05-14] MEDS ORDERED: DEXTROSE 50% 50 ML SYR IV PRN (17:15)
[2017-05-14] MEDS ORDERED: GLUCAGON FOR INJ 1 MG VIAL SQ PRN (17:15)
[2017-05-14] MEDS ORDERED: POLYETHYLENE (MIRALAX) 17 GM PACK PO PRN (17:15)
[2017-05-14] MEDS ORDERED: ONDANSETRON INJ 2 MG/ML 2 ML VIAL IV PRN (17:15)
[2017-05-14] MEDS ORDERED: ZOLPIDEM TARTRATE 5 MG TAB PO PRN ×2 (17:15)
[2017-05-14] MEDS ORDERED: ALUMINUM/MAGNESIUM/SIMETH (MAALOX MAX) 30 ML UDC PO PRN (17:15)
[2017-05-14] MEDS ORDERED: MAGNESIUM HYDROXIDE SUSP 30 ML UDC PO PRN (17:15)
[2017-05-14] MEDS ORDERED: ACETAMINOPHEN 325 MG TAB PO PRN (17:15)
[2017-05-14 17:35] VITALS: O2SAT 94; Ht 182.9 cm; Wt 135.9 kg
--- NOTE | 2017-05-14 17:57 | History and Physical ---
History & Physical Date & Time of Service: May 14, 2017 at 17:49 Chief Complaint: PAIN Primary Care Physician: Anibal Harris M.D. History of Present Illness Source: patient, family 52 years old male with past medical history of HSP (rare type of purpura ) 17 years ago currently in remission, hypertension, diabetes mellitus on oral hypoglycemic and dyslipidemia presented to the hospital with right flank pain 2 days ago, diagnosed with renal stone and sent to follow-up with urologist. Today patient tried to have lithotripsy done by urologist, unfortunately is being got worse and came to the ED for further evaluation. Repeat CT scan showed Unchanged position of the obstructing 8 mm calculus at the right ureteropelvic junction with resultant mild to moderate right hydronephrosis. Patient will be admitted for pain management and urethral stent tomorrow. Blood work showed worsening renal function. Patient was fasting today and dehydrated. Patient was in Cipro prophylactically. Denies any fever chills, chest pain or palpitation. Rest of ROS is negative Patient does not smoke, drinks alcohol socially Father had valve replacement in old age Past Medical/Surgical History Medical Problems: (1) Anxiety State Nos Status: Chronic (2) Diab Heather Wo Compl, Type Ii Or Unspec Type, Not Uncntrld Status: Chronic (3) HSP (Henoch Schonlein purpura) Status: Resolved (4) Hyperlipidemia, Unspecified Status: Chronic (5) Hypertension Nos Status: Chronic (6) Obesity, Nos Status: Chronic Surgical Problems: (1) History of bilateral inguinal hernia repair Status: Resolved Family History Patient reports no known family medical history. Social History Smoking Status: Never Smoker Smokeless Tobacco Use: No Drug Use: none Immunizations History of Influenza Vaccine: Yes History of Tetanus Vaccine?: No History of Pneumococcal: No History of Hepatitis B Vaccine: No Multi-Drug Resistant Organisms History of MDRO: No Allergies Coded Allergies: No Known Allergies (Verified , 05/14/17) Home Medications Scheduled Ciprofloxacin (Ciprofloxacin HCl), 500 MG PO Q12H Fish Oil ([place]-3), 1,000 MG PO QAM Losartan Potassium (Losartan Potassium), 100 MG PO QAM Metformin Hcl (Glucophage), 1,000 MG PO BID Simvastatin (Zocor), 20 MG PO QPM Tamsulosin Hcl (Flomax), 0.4 MG PO QPM Venlafaxine Hcl (Effexor), 75 MG PO QAM Scheduled PRN Oxycodone Ir (Roxicodone Ir), 1-2 TAB PO Q4H PRN for Severe Pain Review of Systems Constitutional: No fever, No chills, No sweats, No weight loss, No weakness, No fatigue, No problem reported Eyes: No worsening of vision, No eye pain, No redness, No discharge, No diplopia, No problem reported ENT: No hearing loss, No unusual epistaxis, No nasal symptoms, No sore throat, No tinnitus, No dental problems, No trouble swallowing, No problem reported Respiratory: No cough, No sputum, No wheezing, No shortness of breath, No dyspnea on exertion, No dyspnea at rest, No hemoptysis, No problem reported Cardiovascular: No chest pain, No orthopnea, No PND, No edema, No claudication , No palpitations, No problem reported Abdomen: + pain, No nausea, No vomiting, No diarrhea, No constipation, No GI bleeding, No problem reported Musculoskeletal: No joint pain, No muscle pain, No swelling, No calf pain, No problem reported Genitourinary - Male: No hematuria, No dysuria, No urinary frequency, No urinary urgency, No urinary hesitancy, No urinary retention, No urinary incontinence, No penile discharge, No lesions, No impotence, No problem reported Neurologic: No memory loss, No paralysis, No weakness, No numbness/tingling, No vertigo, No balance problems, No problem reported Psychiatric: No depression symptoms, No anhedonism, No anxiety, No insomnia, No substance abuse, No problem reported Endocrine: No fatigue, No excessive thirst, No excessive urination, No problem reported Hematologic / Lymphatic: No abnormal bleeding/bruising, No clotting problems, No swollen lymph nodes, No night sweats, No problem reported Integumentary: No rash, No itch, No new/changing skin lesions, No color change , No bleeding, No problem reported Allergic / Immunologic: No environmental allergies, No seasonal allergies, No pet sensitivities, No food allergies, No hives, No frequent infections, No poor healing, No prolonged convalescence, No problem reported Physical Exam Vital Signs Date Time Temp Pulse Resp B/P (MAP) Pulse Ox O2 Delivery O2 Flow Rate FiO2 05/14/17 16:11 82 16 131/84 94 05/14/17 14:27 138/82 05/14/17 14:24 93 16 94 Room Air 05/14/17 13:19 36.9 90 16 96 Room Air General Appearance: WD/WN, no apparent distress Head: normocephalic, atraumatic Eyes: normal inspection, EOMI ENT: normal ENT inspection, hearing grossly normal Neck: supple Respiratory/Chest: chest non-tender, lungs clear, normal breath sounds, no respiratory distress, no accessory muscle use Cardiovascular: regular rate, rhythm, no edema, no gallop, no JVD, no murmur, normal peripheral pulses Abdomen/GI: normal bowel sounds, soft, no organomegaly, no pulsatile mass, + tenderness Back: normal inspection, + right CVA tenderness Extremities/Musculoskelatal: normal inspection Neurologic/Psych: power and recovery shift engineer II-XII nml as tested, no motor/sensory deficits, alert, normal mood/affect, normal reflexes, oriented x 3 Skin: normal color, warm/dry, no rash Diagnostics Laboratory Results Results Past 24 Hours Test 05/14/17 13:25 05/14/17 13:57 05/14/17 16:50 Range/Units Urine Color YELLOW Urine Appearance CLEAR CLEAR Urine pH 5.0 4.5-7.5 Urine Specific [place] 1.018 1.000-1.030 Urine Protein NEG NEG Urine Glucose (UA) NEG NEG Urine Ketones NEG NEG Urine Occult Blood 1+ NEG Urine Nitrite NEG NEG Urine Bilirubin NEG NEG Urine Urobilinogen NEG NEG Urine Leukocyte Esterase NEG NEG Urine WBC (Auto) 1-5 0-5 /hpf Urine RBC (Auto) 0-4 0-4 /hpf Urine Hyaline Casts (Auto) 1-5 0-5 /lpf Urine Epithelial Cells (Auto) 0-5 0-5 /lpf Urine Bacteria (Auto) NEG NEG White Blood Count 10.10 4.8-10.8 K/uL Red Blood Count 4.30 4.7-6.1 M/uL Hemoglobin 13.1 14.0-18.0 g/dL Hematocrit 38.2 42-52 % Mean Corpuscular Volume 88.8 80-100 fL Mean Corpuscular Hemoglobin 30.5 25-34 pg Mean Corpuscular Hemoglobin Concent 34.3 32-36 g/dl Platelet Count 168 130-400 K/uL Mean Platelet Volume 9.4 7.4-10.4 fL Neutrophils (%) (Auto) 81.5 % Lymphocytes (%) (Auto) 11.0 % Monocytes (%) (Auto) 6.7 % Eosinophils (%) (Auto) 0.5 % Basophils (%) (Auto) 0.1 % Neutrophils # (Auto) 8.23 1.4-6.5 K/uL Lymphocytes # (Auto) 1.11 1.2-3.4 K/uL Monocytes # (Auto) 0.68 0.11-0.59 K/uL Eosinophils # (Auto) 0.05 0-0.5 K/uL Basophils # (Auto) 0.01 0-0.2 K/uL RDW Standard Deviation 47.0 36.4-46.3 fL RDW Coefficient of Variation 14.5 11.5-14.5 % Immature Granulocyte % (Auto) 0.2 % Immature Granulocyte # (Auto) 0.02 0.00-0.02 K/uL Sodium Level 134 136-145 mmol/L Potassium Level 4.6 3.5-5.1 mmol/L Chloride Level 101 98-107 mmol/L Carbon Dioxide Level 28 21-32 mmol/L Anion Gap 5.0 3-11 mmol/L Blood Urea Nitrogen 30 7-18 mg/dl Creatinine 1.86 0.60-1.40 mg/dl Est Creatinine Clear Calc Drug Dose 67.1 ml/min Estimated GFR () 47.5 Estimated GFR (Non- 41.0 BUN/Creatinine Ratio 16.0 10-20 Random Glucose 174 70-99 mg/dl Lactic Acid Level 2.1 0.4-2.0 mmol/L Calcium Level 8.6 8.5-10.1 mg/dl Total Bilirubin 0.5 0.2-1 mg/dl Direct Bilirubin 0.1 0-0.2 mg/dl Aspartate Amino Transf (AST/SGOT) 20 15-37 U/L Alanine Aminotransferase (ALT/SGPT) 52 12-78 U/L Alkaline Phosphatase 55 45-117 U/L Total Protein 7.2 6.4-8.2 gm/dl Albumin 3.1 3.4-5.0 gm/dl Lipase 335 73-393 U/L Bedside Lactic Acid Venous 1.90 0.90-1.70 mmol/L Impression Assessment and Plan 52 years old male with past medical history of 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 Assessment acute renal colic status post failed lithotripsy. Acute kidney injury with baseline creatinine 1, now it is 1.8, multifactorial likely obstructive uropathy/losartan/decrease oral intake as patient was fasting Diabetes mellitus on oral hypoglycemic Hypertension Dyslipidemia Obesity Clinically suspected obstructive sleep apnea History of HSP 17 years ago currently in remission Plan Admit to [facility] Pain management IV fluid hydration Hold losartan Hold metformin and start patient on sliding scale insulin Heparin subcutaneous 1 dose now to cover the patient until tomorrow morning as he will have his procedure tomorrow morning Patient can eat now that nothing by mouth from midnight Hydralazine when necessary elevated blood pressure since losartan is on hold Patient states that his hemoglobin A1c was recently checked and was 7.1, no need to repeat that Continue Flomax VTE Prophylaxis VTE Risk Assessment Done? Y/N: Yes Risk Level: Moderate
[2017-05-14] MEDS ORDERED: HydrALAZINE HCL 20 MG/ML VIAL IV. PRN (18:00)
[2017-05-14 18:50] VITALS: BP 167/97; PULSE 89; TEMP 36.8; O2SAT 96
[2017-05-14] MEDS: CIPROFLOXACIN 500 MG TAB PO SCH (20:37)
[2017-05-14] MEDS: LACTOBACILLUS ACIDOPHILUS (FLORANEX) TAB PO SCH (20:37)
[2017-05-14] MEDS ORDERED: TAMSULOSIN HCL 0.4 MG CAP PO SCH (21:00)
[2017-05-14] MEDS ORDERED: SIMVASTATIN 20 MG TAB PO SCH (21:00)
[2017-05-14] MEDS ORDERED: INSULIN ASPART 100 UNITS/ML 3 ML PEN SC SCH (21:00)
[2017-05-14 22:53] VITALS: BP 137/77; PULSE 92; TEMP 36.9; O2SAT 95
[2017-05-14] MEDS ORDERED: NURSING VERBAL MED ORDER ONE (23:15)
[2017-05-15] VITALS (7 sets, daily range): BP systolic 128–177; BP diastolic 72–99; PULSE 87–96; TEMP 36.6–36.8; O2SAT 93–96
[2017-05-15] MEDS: SODIUM CHLORIDE 0.9% 1000ML 1,000 ML IV SCH ×2 (02:04→09:15)
[2017-05-15] MEDS ORDERED: KETOROLAC TROMETHAMINE 15 MG/ML VIAL ONE (04:58)
[2017-05-15] MEDS ORDERED: KETOROLAC TROMETHAMINE 15 MG/ML VIAL IV PRN (05:00)
[2017-05-15] MEDS ORDERED: INSULIN ASPART 100 UNITS/ML 3 ML PEN SC SCH (06:00)
[2017-05-15 06:36] LABS: BASO % 0.1 %; BASO ABS # 0.01 K/uL (0-0.2); EOS ABS # 0.11 K/uL (0-0.5); HEMATOCRIT 38.5 % (42-52); IG# 0.03 K/uL (0.00-0.02); LYMPH % 16.2 %; MEAN CELL VOLUME 88.9 fL (80-100); MEAN CORPUSCULAR HGB CONC 33.8 g/dl (32-36); MEAN PLATELET VOLUME 9.5 fL (7.4-10.4); MONO % 8.7 %; MONO ABS # 0.91 K/uL (0.11-0.59); NEUT % 73.7 %; NEUT ABS # 7.72 K/uL (1.4-6.5); PLATELET COUNT 193 K/uL (130-400); RED CELL DISTRIBUTION WIDTH CV 14.1 % (11.5-14.5); RED CELL DISTRIBUTION WIDTH SD 46.4 fL (36.4-46.3); WHITE BLOOD COUNT 10.48 K/uL (4.8-10.8)
[2017-05-15 07:07] LABS: CALCIUM 8.4 mg/dl (8.5-10.1); CREATININE 2.15 mg/dl (0.60-1.40); POTASSIUM 4.8 mmol/L (3.5-5.1)
[2017-05-15 07:10] LABS: PHOSPHORUS 3.5 mg/dl (2.5-4.9); TOTAL PROTEIN 7.3 gm/dl (6.4-8.2)
--- NOTE | 2017-05-15 08:03 | Urology Consultation ---
History General Date of Service: May 15, 2017. Primary Care Physician: Anibal Harris M.D. Pt seen a urologist before?: Yes If yes, why?: kidney stones History of Present Illness Pt seen in the ER on Wednesday with an obstructing R ureteral calc - underwent lithotripsy on Wednesday (very challenging to see the stone) - continued pain after the procedure prompted return to the ER and admission - repeat CT - shows unchanged position of the ureteral stone - he remains quite uncomfortable now - Cr continues to rise Vital Signs Past 12 Hours Date Time Temp Pulse Resp B/P (MAP) Pulse Ox O2 Delivery O2 Flow Rate FiO2 05/15/17 06:55 36.7 91 19 143/89 (107) 93 Room Air 05/15/17 02:45 91 16 128/72 (90) 93 Room Air 05/15/17 00:04 Room Air 05/14/17 22:53 36.9 92 16 137/77 (97) 95 Room Air 05/15/17 06:14 Red Blood Count 4.33, Mean Corpuscular Volume 88.9, Mean Corpuscular Hemoglobin 30.0, Mean Corpuscular Hemoglobin Concent 33.8, Mean Platelet Volume 9.5, Neutrophils (%) (Auto) 73.7, Lymphocytes (%) (Auto) 16.2, Monocytes (%) (Auto) 8.7, Eosinophils (%) (Auto) 1.0, Basophils (%) (Auto) 0.1, Neutrophils # (Auto) 7.72, Lymphocytes # (Auto) 1.70, Monocytes # (Auto) 0.91, Eosinophils # (Auto) 0.11, Basophils # (Auto) 0.01 05/15/17 06:14 Test 05/14/17 13:25 05/14/17 13:57 05/14/17 16:50 05/15/17 05:51 Urine Color YELLOW Urine Appearance CLEAR (CLEAR) Urine pH 5.0 (4.5-7.5) Urine Specific [place] 1.018 (1.000-1.030) Urine Protein NEG (NEG) Urine Glucose (UA) NEG (NEG) Urine Ketones NEG (NEG) Urine Occult Blood 1+ (NEG) Urine Nitrite NEG (NEG) Urine Bilirubin NEG (NEG) Urine Urobilinogen NEG (NEG) Urine Leukocyte Esterase NEG (NEG) Urine WBC (Auto) 1-5 /hpf (0-5) Urine RBC (Auto) 0-4 /hpf (0-4) Urine Hyaline Casts (Auto) 1-5 /lpf (0-5) Urine Epithelial Cells (Auto) 0-5 /lpf (0-5) Urine Bacteria (Auto) NEG (NEG) Prothrombin Time 10.7 SECONDS (9.0-12.0) Prothromb Time International Ratio 1.0 (0.9-1.1) Activated Partial Thromboplast Time 25.0 SECONDS (21.0-31.0) Partial Thromboplastin Ratio 1.0 Lactic Acid Level 2.1 mmol/L (0.4-2.0) Direct Bilirubin 0.1 mg/dl (0-0.2) Lipase 335 U/L (73-393) Bedside Lactic Acid Venous 1.90 mmol/L (0.90-1.70) Bedside Glucose 151 mg/dl (70-99) Test 05/15/17 06:14 White Blood Count 10.48 K/uL (4.8-10.8) Red Blood Count 4.33 M/uL (4.7-6.1) Hemoglobin 13.0 g/dL (14.0-18.0) Hematocrit 38.5 % (42-52) Mean Corpuscular Volume 88.9 fL (80-100) Mean Corpuscular Hemoglobin 30.0 pg (25-34) Mean Corpuscular Hemoglobin Concent 33.8 g/dl (32-36) Platelet Count 193 K/uL (130-400) Mean Platelet Volume 9.5 fL (7.4-10.4) Neutrophils (%) (Auto) 73.7 % Lymphocytes (%) (Auto) 16.2 % Monocytes (%) (Auto) 8.7 % Eosinophils (%) (Auto) 1.0 % Basophils (%) (Auto) 0.1 % Neutrophils # (Auto) 7.72 K/uL (1.4-6.5) Lymphocytes # (Auto) 1.70 K/uL (1.2-3.4) Monocytes # (Auto) 0.91 K/uL (0.11-0.59) Eosinophils # (Auto) 0.11 K/uL (0-0.5) Basophils # (Auto) 0.01 K/uL (0-0.2) RDW Standard Deviation 46.4 fL (36.4-46.3) RDW Coefficient of Variation 14.1 % (11.5-14.5) Immature Granulocyte % (Auto) 0.3 % Immature Granulocyte # (Auto) 0.03 K/uL (0.00-0.02) Anion Gap 6.0 mmol/L (3-11) Est Creatinine Clear Calc Drug Dose 58.0 ml/min Estimated GFR () 39.9 Estimated GFR (Non- 34.4 BUN/Creatinine Ratio 16.3 (10-20) Calcium Level 8.4 mg/dl (8.5-10.1) Phosphorus Level 3.5 mg/dl (2.5-4.9) Magnesium Level 2.1 mg/dl (1.8-2.4) Total Bilirubin 0.7 mg/dl (0.2-1) Aspartate Amino Transf (AST/SGOT) 20 U/L (15-37) Alanine Aminotransferase (ALT/SGPT) 53 U/L (12-78) Alkaline Phosphatase 59 U/L (45-117) Total Protein 7.3 gm/dl (6.4-8.2) Albumin 3.0 gm/dl (3.4-5.0) Globulin 4.3 gm/dl (2.5-4.0) Albumin/Globulin Ratio 0.7 (0.9-2) Laboratory Labs were reviewed and are within normal limits unless listed below. Labs are available in the chart and at [facility] Problem List Medical Problems: (1) Anxiety State Nos Status: Chronic (2) Diab Heather Wo Compl, Type Ii Or Unspec Type, Not Uncntrld Status: Chronic (3) Hydronephrosis Status: Acute (4) Hyperlipidemia, Unspecified Status: Chronic (5) Hypertension Nos Status: Chronic (6) Obesity, Nos Status: Chronic (7) Right ureteral calculus Status: Acute (8) Ureterolithiasis Status: Acute Past History diabetes, hypertension, kidney stones, other (hx of HSP) Pt had a problem w anesthesia?: No Past Surgical History: lithotripsy, other Family History Patient reports no known family medical history. Social History Hx Tobacco Use In Past Year?: No Smoking: non-smoker Alcohol: socially Drug use: none Housing status: lives with significant other Occupation status: employed Immunizations History of Influenza Vaccine: Yes History of Tetanus Vaccine?: No History of Pneumococcal: No History of Hepatitis B Vaccine: No History of MDRO No Allergies Coded Allergies: No Known Allergies (Verified , 05/14/17) Medications Home Medications: Home Meds and Scripts Medications Dose Route/Sig Max Daily Dose Days Date Category Roxicodone Ir (Oxycodone HCl) 5 Mg Tab 1-2 Tab PO Q4H PRN 05/13/17 Reported Ciprofloxacin HCl (Ciprofloxacin) 500 Mg Tab 500 Mg PO Q12H 05/13/17 Reported Flomax (Tamsulosin Hcl) 0.4 Mg Cap 0.4 Mg PO QPM 05/13/17 Reported Effexor (Venlafaxine Hcl) 75 Mg Tab 75 Mg PO QAM 05/12/17 Reported [place]-3 (Fish Oil) 1 Ea Cap 1,000 Mg PO QAM 05/12/17 Reported Glucophage (Metformin Hcl) 500 Mg Tab 1,000 Mg PO BID 05/12/17 Reported Losartan Potassium 50 Mg Tab 100 Mg PO QAM 05/12/17 Reported Zocor (Simvastatin) 20 Mg Tab 20 Mg PO QPM 02/01/08 Reported Inpatient Medications: Current Inpatient Medications Medications (Trade) Dose Ordered Sig/Joseline Route Start Time Stop Time Status Last Admin Dose Admin Ciprofloxacin (Cipro Tab) 500 mg Q12 PO 05/14/17 21:00 05/24/17 08:59 05/14/17 20:37 500 MG Oxycodone HCl (Roxicodone Immediate Rel Tab) 10 mg Q4H PRN PO 05/14/17 17:15 05/28/17 17:14 05/15/17 01:35 10 MG Simvastatin (Zocor Tab) 20 mg QPM PO 05/14/17 21:00 06/13/17 20:59 05/14/17 20:38 20 MG Tamsulosin HCl (Flomax Cap) 0.4 mg QPM PO 05/14/17 21:00 06/13/17 20:59 05/14/17 20:38 0.4 MG Venlafaxine HCl (effeXOR EXTENDED REL CAP) 75 mg QAM PO 05/15/17 09:00 06/14/17 08:59 Acetaminophen (Tylenol Tab) 650 mg Q4H PRN PO 05/14/17 17:15 2/4/18 17:14 Al Hydrox/Mg Hydrox/Simethicone (Maalox Max Susp) 15 ml Q4H PRN PO 05/14/17 17:15 06/13/17 17:14 Magnesium Hydroxide (Milk Of Magnesia Susp) 30 ml Q6H PRN PO 05/14/17 17:15 06/13/17 17:14 Polyethylene (Miralax Powder Packet) 17 gm DAILY PRN PO 05/14/17 17:15 06/13/17 17:14 Zolpidem Tartrate (Ambien Tab) 5 mg HSZ PRN PO 05/14/17 17:15 06/13/17 17:14 Ondansetron HCl (Zofran Inj) 4 mg Q6H PRN IV 05/14/17 17:15 06/13/17 17:14 05/15/17 02:10 4 MG Zolpidem Tartrate (Ambien Tab) 5 mg HSZ PRN PO 05/14/17 17:15 06/13/17 17:14 Glucose (Glucose 40% Gel) 15-30 GRAMS 15 GRAMS... UD PRN PO 05/14/17 17:15 06/13/17 17:14 Glucose (Glucose Chew Tab) 4-8 Tablets 4 Tabl... UD PRN PO 05/14/17 17:15 06/13/17 17:14 Dextrose (Dextrose 50% 50ML Syringe) 25-50ML OF 50% DW IV FOR... UD PRN IV 05/14/17 17:15 06/13/17 17:14 Glucagon (Glucagon Inj) 1 mg UD PRN SQ 05/14/17 17:15 06/13/17 17:14 Morphine Sulfate (MoRPHine SULFATE INJ) 2 mg Q4H PRN IV 05/14/17 17:15 05/28/17 17:14 05/15/17 02:04 2 MG Lactobacillus Acidophilus (Floranex Tab) 4 tab TIDM PO 05/14/17 18:00 06/13/17 17:59 05/14/17 20:37 4 TAB Hydralazine HCl (HydrALAZINE INJ) 20 mg Q6H PRN IV. 05/14/17 18:00 06/13/17 17:59 Sodium Chloride 1,000 ml @ 100 mls/hr Q10H IV 05/14/17 23:15 06/13/17 23:14 05/15/17 02:04 100 MLS/HR Insulin Aspart (novoLOG ASPART) SLIDING SCALE If C... Q6 SC 05/15/17 06:00 06/14/17 05:59 Ketorolac Tromethamine (Toradol Inj) 15 mg Q6H PRN IV 05/15/17 05:00 05/20/17 04:59 05/15/17 07:25 15 MG Review of Systems Review of Systems Constitutional: No see HPI, No fever, No chills, No frequent headaches, No weight loss, No problem reported Eyes: No see HPI, No blurred vision, No double vision, No eye pain, No loss of night vision, No problem reported Neurological: No see HPI, No dizzy, No passing out, No numbness/tingling, No seizures, No problem reported Endocrine: No see HPI, No excessive thirst, No too hot, No too cold, No tired/ sluggish, No problem reported Gastrointestinal: + abdominal pain, + nausea Cardiovascular: No see HPI, No heart murmur, No chest pain, No angina, No irregular heartbeat, No palpitations, No swelling ankles/feet, No problem reported Respiratory: No see HPI, No shortness of breath, No wheezing, No coughing up blood, No chronic cough, No problem reported Skin: No see HPI, No rash, No boils, No dry skin, No problem reported Musculoskeletal: No see HPI, No joint pain, No neck pain, No back pain, No arthritis, No problem reported Blood / Lymphatic: No see HPI, No bleed easily, No bruise easily, No swollen glands, No problem reported Ears / Nose / Throat: No see HPI, No hearing loss, No sinus, No hoarse voice, No sore throat, No problem reported Psychologic / Mental: No see HPI, No nervous, No trouble remembering, No difficulty sleeping, No problem reported Male : + kidney stones All Other Systems: Reviewed and Negative Physical Exam Vital Signs: Vital Signs Past 12 Hours Date Time Temp Pulse Resp B/P (MAP) Pulse Ox O2 Delivery O2 Flow Rate FiO2 05/15/17 06:55 36.7 91 19 143/89 (107) 93 Room Air 05/15/17 02:45 91 16 128/72 (90) 93 Room Air 05/15/17 00:04 Room Air 05/14/17 22:53 36.9 92 16 137/77 (97) 95 Room Air Physical Exam: General Appearance: no apparent distress Eyes: bilateral eyes normal inspection ENT: hearing grossly normal Neck: supple Respiratory/Chest: no respiratory distress, no accessory muscle use Cardiovascular: regular rate, rhythm Gastrointestinal: Abdomen: normal abdomen Renal: normal renal (moderately tender on the right flank) Extremities: no pedal edema, no calf tenderness Neurologic/Psychiatric: alert, normal mood/affect, oriented x 3 Skin: normal color, warm/dry Lymphatic: no adenopathy Assessment & Plan Assessment & Plan R UPJ stone (radio-lucent) - plan for ureteroscopy, laser litho, stent today - risks, benefits, and alternatives discussed - watch cr - (contrast yesterday, cipro, toradol, DM, and obstruction)
[2017-05-15] MEDS ORDERED: PROPOFOL IV EMULSION 10 MG/ML 20 ML VIAL IV ONE (08:11)
[2017-05-15] MEDS ORDERED: FENTANYL CITRATE INJ 50 MCG/1 ML 2 ML VIAL ONE ×2 (08:11→08:49)
[2017-05-15] MEDS ORDERED: LIDOCAINE HCL 2% 2 ML VIAL (20MG/ML) ONE (08:11)
[2017-05-15] MEDS ORDERED: ONDANSETRON INJ 2 MG/ML 2 ML VIAL ONE (08:11)
[2017-05-15] MEDS ORDERED: DEXAMETHASONE SOD INJ 4 MG/ML VIAL ONE (08:11)
[2017-05-15] MEDS ORDERED: MIDAZOLAM HCL 1 MG/ML 2ML VIAL ONE (08:12)
[2017-05-15] MEDS ORDERED: CONRAY 30% 150ML BOTTLE ONE (08:18)
[2017-05-15] MEDS ORDERED: CIPROFLOXACIN 400MG / 200ML D5W ONE (08:33)
[2017-05-15] MEDS ORDERED: VENLAFAXINE HCL XR 75 MG CAPXR PO SCH (09:00)
[2017-05-15] MEDS ORDERED: FLUMAZENIL 0.1 MG/1 ML 10 ML VIAL IV PRN (09:30)
[2017-05-15] MEDS ORDERED: ATROPINE SULFATE 0.1 MG/ML 5ML SYR IV PRN (09:30)
[2017-05-15] MEDS ORDERED: NALOXONE HCL 0.4 MG/1 ML VIAL/CARP IV PRN (09:30)
[2017-05-15] MEDS ORDERED: LABETALOL HCL IV 5 MG/ML 20ML IV PRN (09:30)
[2017-05-15] MEDS ORDERED: EpHEDrine SULFATE INJ 50 MG/ML AMP IV PRN (09:30)
[2017-05-15] MEDS ORDERED: ONDANSETRON INJ 2 MG/ML 2 ML VIAL IV PRN (09:30)
[2017-05-15] MEDS ORDERED: FENTANYL CITRATE INJ 50 MCG/1 ML 2 ML VIAL IV PRN (09:30)
--- NOTE | 2017-05-15 10:04 | [facility] Operative Report ---
Operative Report Operative Date May 15, 2017. Pre-Operative Diagnosis Right obstructing ureteral calculi Post-Operative Diagnosis same as preop Procedure(s) Performed Cystoscopy, right flexible ureteroscopy; laser lithotripsy, placement of right ureteral stent ([id number]) Surgeon Dr. Adler Wet Roller Surgeon(s) none Estimated Blood Loss 0 ml Findings Impacted R UPJ stone Specimens none Drains [id number] stent Anesthesia Gen Complication(s) None Disposition Recovery Room / PACU (stable) Indications Symptomatic R UPJ stone Description of Procedure The patient was identified in the preoperative holding area, appropriate consents were reviewed and completed and he was transported to the operating suite. Upon arrival he received ciprofloxacin. Adequate general anesthesia was induced, and he was placed in dorsal lithotomy position where he was sterilely prepped and draped in standard fashion. I began the case by passing a 22 [place] cystoscope with 30 lens. Inspection of the urethra revealed no stricture disease, he has a moderately enlarged prostate. Full inspection of the bladder was conducted, identifying no abnormalities. I turned my attention to the right ureteral orifice and cannulated it with a sensor wire and a 10 [place]ori double-lumen catheter. A second wire was then introduced and advanced to the kidney under fluoroscopic guidance. I then withdrew the 10 [place]ori double -lumen catheter passed a flexible ureteroscope. Resistance was met at the UPJ. Visual inspection at that area revealed an edematous ureter with a stone impacted in that location. With gentle retrograde pressure from the scope, I was able to free the stone from inside of impaction and push it back into the kidney. After moving it to a posterior calyx, I was able to pass a 400 laser fiber and fragment the stone entirely. I performed a full renoscopy, confirming no other large stones before exiting the kidney with the scope. Exit ureteroscopy revealed an open and healthy-appearing ureter without evidence of retained stones. A 6 Maori by 22-32 centimeter double-J ureteral stent was inserted with some redundancy in the kidney but an excellent curl in the bladder. He was subsequently reversed from anesthesia and taken to the PACU in stable condition. There were no complications. I attest to the content of the Intraoperative Record and any orders documented therein. Any exceptions are noted below.
--- NOTE | 2017-05-15 10:27 | Anesthesiology Progress Note ---
Anesthesia Post Op Note Date & Time May 15, 2017 at 10:27 Vital Signs Pain Intensity: 0 Vital Signs Past 12 Hours Date Time Temp Pulse Resp B/P (MAP) Pulse Ox O2 Delivery O2 Flow Rate FiO2 05/15/17 10:25 36.8 85 16 156/102 93 Room Air 05/15/17 10:15 88 20 166/97 95 Room Air 05/15/17 10:05 84 18 153/91 96 Oxymask 10 05/15/17 09:55 36.4 88 16 176/96 100 Oxymask 10 05/15/17 06:55 36.7 91 19 143/89 (107) 93 Room Air 05/15/17 02:45 91 16 128/72 (90) 93 Room Air 05/15/17 00:04 Room Air 05/14/17 22:53 36.9 92 16 137/77 (97) 95 Room Air Notes Mental Status: alert / awake / arousable, participated in evaluation Pt Amnestic to Procedure: Yes Nausea / Vomiting: adequately controlled Pain: adequately controlled Airway Patency, RR, SpO2: stable & adequate BP & HR: stable & adequate Hydration State: stable & adequate Anesthetic Complications: no major complications apparent
--- NOTE | 2017-05-15 10:28 | DIAGNOSTIC IMAGING REPORT ---
INTRAOPERATIVE SUPINE ABDOMEN SINGLE VIEW CLINICAL HISTORY: RIGHT SIDED LASER LITHOTRIPSY AND STENT PLACEMENT COMPARISON STUDY: 05/14/2017 FINDINGS: 29 seconds of fluoroscopic time was utilized. A single intraoperative fluoroscopic spot images provided for interpretation. This demonstrates the proximal pigtail of a right-sided nephroureteral stent. IMPRESSION: Intraoperative fluoroscopic spot image demonstrating the proximal pigtail of a right-sided nephroureteral stent Electronically signed by: Varun Adams M.D. 05/15/2017 10:26 AM Dictated Date/Time: 05/15/2017 10:26 AM
[2017-05-15] MEDS: LACTOBACILLUS ACIDOPHILUS (FLORANEX) TAB PO SCH (11:07)
[2017-05-15] MEDS: CIPROFLOXACIN 500 MG TAB PO SCH (11:07)
--- NOTE | 2017-05-15 12:50 | Discharge Instructions ---
Discharge Instructions Date of Service May 15, 2017. Admission Reason for Admission: Obstructive Uropathy Discharge Discharge Diagnosis / Problem: Renal colic Discharge Goals Goal(s): Decrease discomfort, Improve function, Increase independence, Improve disease control, Learn about illness, Diagnostic testing, Therapeutic intervention, Prevent Disease Progression Activity Recommendations Activity Limitations: resume your previous activity Exercise/Sports Limitations: as tolerated . Instructions / Follow-Up Instructions / Follow-Up Patient to be discharged home Pain controlled post procedure Follow up with Dr Adler in 1-2 weeks Please finish up course of antibiotic cipro Follow up with Dr Harris in 1-2 weeks Current Hospital Diet Patient's current hospital diet: Diabetes Type 2 Diet Discharge Diet Recommended Diet: Diabetes Type 2 Diet Procedures Procedures Performed: Cystoscopy, right flexible ureteroscopy; laser lithotripsy, placement of right ureteral stent ([id number]) Pending Studies Studies pending at discharge: no Laboratory Results Hemoglobin A1c Test 04/26/17 07:45 Range/Units Estimated Average Glucose 166 mg/dl Hemoglobin A1c 7.4 H 4.5-5.6 % Lipid Panel Test 04/26/17 07:45 Range/Units Triglycerides Level 299 H 0-150 mg/dl Cholesterol Level 147 0-200 mg/dl HDL Cholesterol 36 mg/dl Cholesterol/HDL Ratio 4.1 LDL Cholesterol, Calculated 51 mg/dl Medical Emergencies . Who to Call and When: Medical Emergencies: If at any time you feel your situation is an emergency, please call 911 immediately. . Non-Emergent Contact Non-Emergency issues call your: Primary Care Provider Call Non-Emergent contact if: you have a fever, your pain is worsening . . "Provider Documentation" section prepared by Billy Costello. . VTE Core Measure Inpt VTE Proph given/why not?: Unfractionated heparin SQ
--- NOTE | 2017-05-15 17:03 | Discharge Summary ---
Discharge Summary Date of Service May 15, 2017. Discharge Summary Admission Date: May 14, 2017 at 17:20 Discharge Date: May 15, 2017 Discharge Disposition: Home Principal Diagnosis: Right ureteral stone, renal colic Problems/Secondary Diagnoses: (1) Anxiety State Nos Status: Chronic (2) Diab Heather Wo Compl, Type Ii Or Unspec Type, Not Uncntrld Status: Chronic (3) Hyperlipidemia, Unspecified Status: Chronic (4) Hypertension Nos Status: Chronic (5) Obesity, Nos Status: Chronic Immunizations: Have You Had Influenza Vaccine: Yes History of Tetanus Vaccine?: No History of Pneumococcal: No History of Hepatitis B Vaccine: No Consultations: Urology Medication Reconciliation Continued Medications: Ciprofloxacin (Ciprofloxacin HCl) 500 Mg Tab 500 MG PO Q12H Fish Oil ([place]-3) 1 Ea Cap 1000 MG PO QAM, CAP Losartan Potassium (Losartan Potassium) 50 Mg Tab 100 MG PO QAM Metformin Hcl (Glucophage) 500 Mg Tab 1000 MG PO BID, TAB Oxycodone Ir (Roxicodone Ir) 5 Mg Tab 1-2 TAB PO Q4H PRN for Severe Pain, #12 TAB Simvastatin (Zocor) 20 Mg Tab 20 MG PO QPM, 0 Refills Tamsulosin Hcl (Flomax) 0.4 Mg Cap 0.4 MG PO QPM, CAP Venlafaxine Hcl (Effexor) 75 Mg Tab 75 MG PO QAM, TAB Discharge Exam Review of Systems: Constitutional: No fever, No chills, No sweats, No weakness ENT: No hearing loss, No unusual epistaxis, No nasal symptoms, No sore throat Respiratory: No cough, No sputum, No wheezing, No shortness of breath Cardiovascular: No chest pain, No orthopnea, No PND, No edema Abdomen: No pain, No nausea, No vomiting, No diarrhea Musculoskeletal: No joint pain, No muscle pain, No swelling, No calf pain Genitourinary - Male: No hematuria, No dysuria, No urinary frequency, No urinary urgency Neurologic: No memory loss, No paralysis, No weakness, No numbness/tingling Psychiatric: No depression symptoms, No anhedonism, No anxiety, No insomnia Endocrine: No fatigue, No excessive thirst Integumentary: No rash, No itch Hospital Course 52 years old male with past medical history of 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 Assessment acute renal colic status post failed lithotripsy. Acute kidney injury, multifactorial likely obstructive uropathy/losartan/ decrease oral intake as patient was fasting Diabetes mellitus on oral hypoglycemic Hypertension Dyslipidemia Obesity Clinically suspected obstructive sleep apnea History of HSP 17 years ago currently in remission Plan Admit to med surg Pain management IV fluid hydration Hold losartan Hold metformin and start patient on sliding scale insulin Hydralazine when necessary elevated blood pressure since losartan is on hold Patient states that his hemoglobin A1c was recently checked and was 7.1, no need to repeat that Continue Flomax Underwent cytoscopy with laser lithotripsy and right ureteral stent Pt tolerated procedure well and dced on flomax and oxycodone PRN pain Will f/u with Dr Adler for stent removal in 1-2 weeks Total Time Spent: Greater than 30 minutes This includes examination of the patient, discharge planning, medication reconciliation, and communication with other providers. Discharge Instructions Please refer to the electronic Patient Visit Report (Discharge Instructions) for additional information. Additional Copies To Anibal Harris M.D.
[2017-05-16] MEDS ORDERED: CIPROFLOXACIN 400MG / 200ML D5W IV ONE (06:00)
== END 2017-05-15 14:58 | disposition home or self-care (01) | DRG 691 ==
LOC: EDBD 13:18 → C.EDB 13:19 → C.MSN 17:20 → ENRESERV 17:43
PROVIDERS: ADMIT Internal Medicine; ATTEND Hospitalist
PROC: 0TF6XZZ Fragmentation in Right Ureter, External Approach (ICD-10-PCS; principal; 2017-05-15 07:55)
PROC: 0TH Urinary System, Insertion (ICD-10-PCS; principal; 2017-05-15 07:55)
DX: N20.1 Calculus of ureter (principal); N17.9 Acute kidney failure, unspecified; N13.30 Unspecified hydronephrosis; Z68.41 Body mass index [BMI] 40.0-44.9, adult; N23 Unspecified renal colic; E11.9 Type 2 diabetes mellitus without complications; F41.9 Anxiety disorder, unspecified; E78.5 Hyperlipidemia, unspecified; I10 Essential (primary) hypertension; E66.9 Obesity, unspecified; Z79.84 Long term (current) use of oral hypoglycemic drugs

== ENCOUNTER → 2017-05-14 | Outpatient (CLI) | payer OTHER ==
[~2017-05-14] MED LIST changes: -ALT5 PO; -OXYC-737 PO
--- NOTE | 2017-05-14 07:52 | DIAGNOSTIC IMAGING REPORT ---
KUB CLINICAL HISTORY: 52 years-old Male presenting with N20.1 Ureteric [id number]. TECHNIQUE: Single supine view of the abdomen was obtained. COMPARISON: 05/12/2017. FINDINGS: Nonobstructive bowel gas pattern. Slightly decreased stool burden. No gross pneumoperitoneum. Allowing for bowel gas and stool, no calcifications project over the renal shadows. In correlating with the calculi in the pelvis on prior CT, pelvic calcifications are most consistent with phleboliths. The ureteral calculus cannot be accurately localized. Osseous structures normal. IMPRESSION: 1. The right ureteral calculus cannot be accurately localized due to bowel gas and stool. IVP to be considered. 2. No radiographically apparent renal calculi. Electronically signed by: Sly Gonzalez M.D. 05/14/2017 7:51 AM Dictated Date/Time: 05/14/2017 7:44 AM
== END | disposition home or self-care (01) ==
LOC: C.RAD 07:16
PROVIDERS: ATTEND Urology
DX: N20.1 Calculus of ureter (principal)

== ENCOUNTER → 2017-05-14 | Day surgery (SDC) | payer OTHER ==
[2017-05-13 13:31] VITALS: Ht 182.9 cm; Wt 129.6 kg
[~2017-05-14] VITALS: Ht 182.9 cm; Wt 129.6 kg
[~2017-05-14] MED LIST changes: +ACETAMINOPHEN 325 MG TAB PO PRN; +ATROPINE SULFATE 0.1 MG/ML 5ML SYR IV PRN; +CIPROFLOXACIN 400MG / D5W IV SCH; +DEXAMETHASONE SOD INJ 4 MG/ML VIAL ONE; +EpHEDrine SULFATE INJ 50 MG/ML AMP IV PRN; +FENTANYL CITRATE INJ 50 MCG/1 ML 2 ML VIAL ONE; +FUROSEMIDE INJ 10 MG/ML 2 ML VIAL ONE; +LACTATED RINGER'S 1000ML 1,000 ML IV SCH; +LIDOCAINE HCL 2% 2 ML VIAL (20MG/ML) ONE; +MIDAZOLAM HCL 1 MG/ML 2ML VIAL ONE; +NURSING VERBAL MED ORDER ONE; +ONDANSETRON INJ 2 MG/ML 2 ML VIAL IV PRN; +ONDANSETRON INJ 2 MG/ML 2 ML VIAL ONE; +OPTIRAY 300 IV ONE; -OXYC-90 PO; +OXYC1TAB3 PO; +OXYCODONE/ACETAMINOPHEN 5-325 TAB PO PRN; +PROPOFOL IV EMULSION 10 MG/ML 20 ML VIAL IV ONE; +SODIUM CHLORIDE 0.9% 1000ML 1,000 ML IV SCH
--- NOTE | 2017-05-14 09:49 | History & Physical Bridge Note ---
H&P Re-Evaluation Bridge Note: I have examined the patient, reviewed the History & Physical and in the interval since the performance of the History & Physical I have noted the following changes of clinical significance: No changes noted
--- NOTE | 2017-05-14 11:07 | Discharge Instructions-SurgCtr ---
Discharge Instructions Date of Service May 14, 2017. Visit Reason for Visit: Stones Discharge Discharge Diagnosis / Problem: stones Discharge Goals Goal(s): Decrease discomfort, Improve function, Increase independence, Improve disease control Activity Recommendations Activity Limitations: resume your previous activity Lifting Limitations: none Exercise/Sports Limitations: none May Resume Sexual Activity: when tolerated Shower/Bathe: no limitations Driving or Machine Use: no limitations Anesthesia . Post Anesthesia Instructions: If you have had General Anesthesia or IV Sedation: * Do not drive today. * Resume driving when surgeon permits. * Do not make important decisions or sign legal documents today. * Call surgeon for: 1. Temperature elevations greater than 101 degrees F. 2. Uncontrollable pain. 3. Excessive bleeding. 4. Persistent nausea and vomiting. 5. Medication intolerance (nausea, vomiting or rash). * For nausea and vomiting use only clear liquids such as: tea, soda, bouillon until nausea subsides, then gradually increase diet as tolerated. * If you have any concerns or questions, call your surgeon's office. If physician is unavailable and it is an emergency, call 911 or go to the nearest emergency room. . Instructions / Follow-Up Instructions / Follow-Up please keep your previously scheduled follow up appointment - if your pain becomes extreme, please return to the ER Diet Recommendations Home Diet: no limitations, resume previous diet Procedures Procedures Performed: Right Ureteral Extracorporeal Shock Wave Lithotripsy Pending Studies Studies pending at discharge: no Medical Emergencies . Who to Call and When: Medical Emergencies: If at any time you feel your situation is an emergency, please call 911 immediately. . Non-Emergent Contact Non-Emergency issues call your: Urologist Call Non-Emergent contact if: you have a fever, temperature is above 101.5, your pain is not controlled, your pain is worsening . . "Provider Documentation" section prepared by Julito Villalobos. .
--- NOTE | 2017-05-14 11:33 | [facility] Operative Report ---
Operative Report Operative Date May 14, 2017. Pre-Operative Diagnosis Right ureteral stone Post-Operative Diagnosis Same as pre-op Procedure(s) Performed Right Ureteral Extracorporeal Shock Wave Lithotripsy Surgeon Consumer Services Consultant Surgeon(s) None Estimated Blood Loss Zero Findings As per dictation Specimens None Drains none Anesthesia Gen. Complication(s) None Disposition Recovery Room / PACU (stable) Implants None Indications Symptomatic right ureteral stone Description of Procedure First performed on table IVP as the stone was not radio opaque. 20 mg of Lasix was given following initiation of the contrast. The right renal pelvis and dilated calyces were visualized after 40 minutes. There was stoppage of contrast progression down the ureter at the UPJ, while the stone was not easily visualized in this area, we elected to treat this area. A total of 2500 shocks were delivered to this area with gradual drainage of contrast out of the kidney. The conclusion of the case the patient was extubated and taken to the PACU in stable condition. There were no complications I attest to the content of the Intraoperative Record and any orders documented therein. Any exceptions are noted below.
[2017-05-14] MEDS: FENTANYL CITRATE INJ 50 MCG/1 ML 2 ML VIAL IV PRN ×2 (11:52→11:59)
[2017-05-14 12:23] VITALS: TEMP 36.7
--- NOTE | 2017-05-14 12:59 | Anesthesia Progress Nt - [facility] ---
Anesthesia Post Op Note Date & Time May 14, 2017 at 12:57 Vital Signs Pain Intensity: 10.0 Vital Signs Past 12 Hours Date Time Temp Pulse Resp B/P (MAP) Pulse Ox O2 Delivery O2 Flow Rate FiO2 05/14/17 12:23 36.7 83 20 95 Room Air 05/14/17 12:18 79 15 94 05/14/17 12:18 80 15 05/14/17 12:16 159/99 05/14/17 12:13 82 15 94 05/14/17 12:13 82 15 05/14/17 12:12 87 17 94 05/14/17 12:12 87 17 05/14/17 12:11 154/101 05/14/17 12:07 80 12 93 05/14/17 12:07 80 12 05/14/17 12:06 159/95 05/14/17 12:06 159/95 05/14/17 12:04 36.9 95 Room Air 05/14/17 12:03 83 10 90 05/14/17 12:03 83 10 05/14/17 12:03 83 10 90 05/14/17 12:03 83 10 05/14/17 12:01 162/102 05/14/17 12:01 162/102 05/14/17 11:58 80 19 05/14/17 11:58 80 19 95 05/14/17 11:58 80 19 05/14/17 11:58 80 19 95 05/14/17 11:56 156/101 05/14/17 11:56 156/101 05/14/17 11:53 75 18 05/14/17 11:53 75 18 05/14/17 11:53 76 18 100 05/14/17 11:53 76 18 100 05/14/17 11:52 74 16 05/14/17 11:52 74 16 100 05/14/17 11:51 156/95 05/14/17 11:47 77 20 05/14/17 11:47 75 20 100 05/14/17 11:46 157/98 05/14/17 11:42 77 22 100 05/14/17 11:42 78 22 05/14/17 11:41 155/102 05/14/17 11:39 78 18 05/14/17 11:39 78 18 100 05/14/17 11:36 148/97 05/14/17 11:35 145/98 05/14/17 11:34 36.2 98 18 145/98 98 Mask 10 05/14/17 11:34 75 96 05/14/17 11:34 75 05/14/17 10:15 95 Room Air 05/14/17 10:12 95 Room Air 05/14/17 08:01 36.6 89 20 165/95 (118) 95 Room Air Notes Mental Status: alert / awake / arousable, participated in evaluation Pt Amnestic to Procedure: Yes Nausea / Vomiting: adequately controlled Pain: see Notes Airway Patency, RR, SpO2: stable & adequate BP & HR: stable & adequate Hydration State: stable & adequate Anesthetic Complications: no major complications apparent Pt complains of uncontrolled R flank pain s/p R ESWL. The pt is amenable to going to [facility] ER for further evaluation and pain control. I spoke with the pt and Dr. Adler. The pt is otherwise stable without other complaints.
[2017-05-14 13:05] VITALS: BP 122/73; PULSE 82; O2SAT 97
== END | disposition home or self-care (01) ==
LOC: X.SURG 07:34
PROVIDERS: ATTEND Urology
DX: N20.1 Calculus of ureter (principal); E11.9 Type 2 diabetes mellitus without complications; E78.5 Hyperlipidemia, unspecified; I10 Essential (primary) hypertension; F32.9 Major depressive disorder, single episode, unspecified; E66.9 Obesity, unspecified; Z68.39 Body mass index [BMI] 39.0-39.9, adult; Z79.899 Other long term (current) drug therapy

== ENCOUNTER → 2017-05-21 | Outpatient (CLI) | payer OTHER ==
--- NOTE | 2017-05-21 08:27 | DIAGNOSTIC IMAGING REPORT ---
KUB CLINICAL HISTORY: Hydronephrosis. Nephrolithiasis. FINDINGS: 2 AP supine abdominal radiographs are compared to study dated 05/14/2017 and correlated with abdominal CT dated 05/14/2017. A right ureteral stent is new from previous. No calcifications are seen along the course of the stent. No calcifications are identified projecting over either kidney. Phleboliths are noted in the pelvis. No bowel obstruction is seen. The bony structures appear intact. IMPRESSION: 1. A right ureteral stent is new from previous. No calcifications are seen along the course of the stent. 2. There is no radiographic evidence of nephrolithiasis on today's examination. Electronically signed by: Benny Lu M.D. 05/21/2017 8:26 AM Dictated Date/Time: 05/21/2017 8:25 AM
== END | disposition home or self-care (01) ==
LOC: C.RAD 08:02
PROVIDERS: ATTEND Urology
DX: N13.30 Unspecified hydronephrosis (principal); Z96.0 Presence of urogenital implants

== ENCOUNTER → 2017-06-29 | Outpatient (CLI) | payer OTHER ==
--- NOTE | 2017-06-29 07:03 | DIAGNOSTIC IMAGING REPORT ---
RENAL ULTRASOUND CLINICAL HISTORY: Stones. Flank pain. Recent stent removal. COMPARISON STUDY: CT of the abdomen and pelvis May 14, 2017 and KUB May 21, 2017. TECHNIQUE: Sonography of the kidneys and the urinary bladder was performed. FINDINGS: The right kidney measures 10.5 x 5.8 x 5.3 cm and the left measures 11.7 x 5.8 x 6.5 cm. No hydronephrosis is noted. No calculi are identified by sonography. There is no renal mass. Renal echogenicity, size and cortical thickness are normal. Both ureteral jets were identified. Interval note is made of borderline splenomegaly and fatty infiltration of the liver. IMPRESSION: 1. No hydronephrosis. 2. No calculi identified although these may be occult by sonography. 3. Fatty liver. Electronically signed by: Alex Wyatt M.D. 06/29/2017 7:02 AM Dictated Date/Time: 06/29/2017 6:59 AM
== END | disposition home or self-care (01) ==
LOC: C.ULTR 06:31
PROVIDERS: ATTEND Urology
DX: N20.1 Calculus of ureter (principal); K76.0 Fatty (change of) liver, not elsewhere classified

== ENCOUNTER → 2017-08-04 | Outpatient (CLI) | payer OTHER ==
[2017-08-04 09:32] LABS: BASO % 0.4 %; BASO ABS # 0.03 K/uL (0-0.2); EOS % 3.7 %; EOS ABS # 0.25 K/uL (0-0.5); HEMATOCRIT 41.8 % (42-52); HEMOGLOBIN 14.8 g/dL (14.0-18.0); IG# 0.01 K/uL (0.00-0.02); LYMPH % 33.6 %; LYMPH ABS # 2.28 K/uL (1.2-3.4); MEAN CELL VOLUME 86.5 fL (80-100); MEAN CORPUSCULAR HEMOGLOBIN 30.6 pg (25-34); MEAN CORPUSCULAR HGB CONC 35.4 g/dl (32-36); MEAN PLATELET VOLUME 9.9 fL (7.4-10.4); MONO % 8.8 %; NEUT % 53.4 %; NEUT ABS # 3.61 K/uL (1.4-6.5); PLATELET COUNT 208 K/uL (130-400); RED CELL DISTRIBUTION WIDTH SD 44.3 fL (36.4-46.3); WHITE BLOOD COUNT 6.78 K/uL (4.8-10.8)
[2017-08-04 10:01] LABS: BLOOD UREA NITROGEN 24 mg/dl (7-18); CALCIUM 8.8 mg/dl (8.5-10.1); CARBON DIOXIDE 26 mmol/L (21-32); GLUCOSE 154 mg/dl (70-99); POTASSIUM 4.3 mmol/L (3.5-5.1); SODIUM 138 mmol/L (136-145)
[2017-08-04 10:12] LABS: HEMOGLOBIN A1C 7.1 % (4.5-5.6)
== END | disposition home or self-care (01) ==
LOC: C.LAB1850 07:29
PROVIDERS: ATTEND Internal Medicine
DX: I10 Essential (primary) hypertension (principal); E78.5 Hyperlipidemia, unspecified; E11.9 Type 2 diabetes mellitus without complications; R07.89 Other chest pain; N13.30 Unspecified hydronephrosis; N20.2 Calculus of kidney with calculus of ureter

== ENCOUNTER → 2018-01-03 | Outpatient (CLI) | payer OTHER ==
[~2018-01-03] MED LIST changes: +OXYC-90 PO; -OXYC1TAB3 PO
--- NOTE | 2018-01-03 14:13 | DIAGNOSTIC IMAGING REPORT ---
EXAMINATION: RENAL ULTRASOUND CLINICAL HISTORY: N20.0 [id number] COMPARISON STUDY: June 29, 2017 FINDINGS: The right kidney measures 12 cm. The left kidney measures 12.4 cm. There is no evidence of hydronephrosis. No solid renal masses are visualized. There is a suspected 9 mm lower pole right renal calculus. No bladder abnormalities are visualized. Bilateral ureteral jets were visualized. There is increased hepatic echogenicity suspicious for hepatic steatosis IMPRESSION : 1. No hydronephrosis 2. Suspected 9 mm lower pole right renal calculus 3. Hepatic steatosis Electronically signed by: Varun Adams M.D. 01/03/2018 2:12 PM Dictated Date/Time: 01/03/2018 2:10 PM
== END | disposition home or self-care (01) ==
LOC: C.ULTR 13:39
PROVIDERS: ATTEND Urology
DX: N20.0 Calculus of kidney (principal); K76.0 Fatty (change of) liver, not elsewhere classified